=== PATIENT | female | born 1940 | race Caucasian/White ===

== ENCOUNTER → 2018-04-20 13:12 | Outpatient (CLI) | payer OTHER, SELFPAY | PROVIDERS: PCP Physician Assistant; Visit Provider Physician Assistant | DX: E11.9 Type 2 diabetes mellitus without complications (principal); Z78.0 Asymptomatic menopausal state | CPT/HCPCS: 77080 ==

== ENCOUNTER 2020-05-25 18:43 | Emergency (ER) | payer OTHER, SELFPAY ==
[2020-05-25 18:57] VITALS: BP 129/84; PULSE 88; RESP 20; TEMP 36.8; O2SAT 95; BMI 32.3
--- NOTE | 2020-05-25 19:05 | ED.EPISTAXIS ---
HPI - Epistaxis General Chief complaint: Nasal Problem Stated complaint: bloody nose Time Seen by Provider: 05/25/20 19:05 Source: patient Mode of arrival: Ambulatory Limitations: no limitations History of Present Illness HPI Narrative: 79-year-old woman with a history of diabetes, hypertension, hyperlipidemia on aspirin as her only anticoagulant presents with 3 episodes of epistaxis today. She describes no inciting events. The 1st episode happened is she was stepping out of the shower and lasted for approximately 30 minutes the next episode was a number of hours later while she was driving in the car, again lasted approximately 30 minute. The most recent episode started at 6:00 p.m. and lasted over an hour finally resolved in the emergency room with a nasal clamp placed.. Blood pressure has been well controlled, she has not noticed any nasal trauma nasal discharge or allergy issues. She is not complaining of nausea or vomiting. She is having no palpitations or chest pain. She has not had a history of recurrent epistaxis. Related Data Allergies Allergy/AdvReac Type Severity Reaction Status Date / Time latex [LATEX] Allergy Intermediate rash Verified 05/25/20 18:57 aspirin Allergy Verified 05/25/20 18:57 Review of Systems Review of Systems Narrative: Remainder of review of systems including constitutional, ENT, cardiovascular, respiratory, GI, , musculoskeletal, skin, neurologic and psychiatric systems reviewed and are unremarkable except as noted in HPI. Patient History Medical History Diabetes (Acute) Hyperlipidemia (Acute) Hypertension (Acute) Social History Smoking Status: Unknown if ever smoked Smoking Status: Unknown if ever smoked alcohol intake frequency: holidays/special occasions only Substance Use Type: does not use Exam Narrative Exam Narrative: General: Healthy appearing, in no acute distress. Able to give a complete and coherent history. Well-nourished well-developed HEENT: Moist mucous membranes, normal sclera with reactive pupils, Nose: Nasal clamp is removed. Gentle examination of nasal cavity bilaterally reveals no clots and no point area of bleeding. Neck: No JVD, supple Respiratory: Lungs are clear to auscultation, no wheezing no rales no rhonchi. Full and symmetrical air movement Cardiac: Regular rate and rhythm no murmurs no bruits Abdomen: Soft nontender good bowel tones, no flank pain Skin: Warm and dry, no rashes Neurologic: Grossly neurologically intact with no obvious asymmetries or abnormalities Extremities: No trauma, well perfused Psych: Cooperative, appropriate insight and affect Initial Vital Signs Initial Vital Signs: Vital Signs Temperature 98.2 F 05/25/20 18:57 Pulse Rate 88 05/25/20 18:57 Respiratory Rate 20 05/25/20 18:57 Blood Pressure 129/84 05/25/20 18:57 Pulse Oximetry 95 05/25/20 18:57 Course Orders Ordered: Discontinued Medications Oxymetazoline HCl (Nasal Decongestant) 2 sprays NASAL NOW ONE Stop: 05/25/20 19:17 Last Admin: 05/25/20 19:23 Dose: 2 sprays Documented by: LONI Vital Signs Vital signs: Vital Signs - 8 hr 05/25/20 18:57 Temperature 98.2 F Pulse Rate 88 Respiratory Rate 20 Blood Pressure 129/84 Pulse Oximetry 95 [facility] - Epistaxis Medical Records Attestation: I reviewed the patient's medical records. [facility] Narrative Medical decision making narrative: Three episodes of epistaxis today with normal blood pressures and no evidence of trauma, infection or other reasons to explain the epistaxis. This is not a common finding for Brisa. Bleeding stopped spontaneously. His state. After using 2 sprays of Afrin. I do not see any obvious source of bleeding that could be cauterized or needs to be packed. Reassurance is given. Encouraged her to follow-up with ENT should she have continued small episodes of epistaxis. At this point I do not see any other signs of bleeding to suggest a significant bleeding dyscrasia, no elevated blood pressure and no other significant pathology is appreciated. She is safe for home discharge Discharge Plan Departure Patient Disposition: Home Clinical Impression: Epistaxis Instructions: DI for Nosebleed Activity Restrictions/Additional Instructions: Thank you for coming in today You nose bleed stopped with pressure here in the emergency department. We did use some Afrin to try to constrict the blood vessels in your nose to prevent it from restarting. In looking up ear nose I do not see any obvious bleeding sites or blood clots at this time. I think that it is safe for you to go home. If you have a recurrent nose bleed, please use 2 sprays of Afrin and a nose clamp. If the blood is running down the back of your throat or does not stop within 20-30 minutes please feel free to return to the emergency department and will talk about using some nasal packing to help stop the bleeding. If you continue to have small nose bleeds I would encourage you to set up an appointment with Dr. Manuel Tse, our ear nose and throat physician, to have him take a with nose and see if there is any areas that might benefit being cauterized. I wish you the best Referrals: Manuel Tse MD [Physician] - Keiry Spicer PA-C [Primary Care Provider] -
[2020-05-25] MEDS: OXYMETAZOLINE NASAL SPRAY 15 ML 2 SPRAYS NASAL (19:23)
--- NOTE | 2020-05-25 19:55 | PC.NURSE ---
Patient ambulated without bleeding from nose.
[2020-05-25 20:43] VITALS: BP 142/65; PULSE 92; O2SAT 97
== END 2020-05-25 20:44 | disposition home or self-care (01) ==
PROVIDERS: Emergency Provider Emergency Medicine; PCP Physician Assistant
DX: R04.0 Epistaxis (principal); E11.9 Type 2 diabetes mellitus without complications; I10 Essential (primary) hypertension; E78.5 Hyperlipidemia, unspecified; Z79.82 Long term (current) use of aspirin
CPT/HCPCS: 99282; A9270

== ENCOUNTER 2022-12-20 14:33 | Inpatient (IN) | payer MEDICARE, SELFPAY ==
[2022-12-20] VITALS (23 sets, daily range): BP systolic 180–217; BP diastolic 69–90; PULSE 58–69; RESP 18–27; TEMP 36.6–37.6; O2SAT 94–98; BMI 32.3
--- NOTE | 2022-12-20 14:53 | DI.CT.S_ITS ---
PROCEDURE: CT HEAD/BRAIN WO CON INDICATIONS: facial droop, left arm weakness TECHNIQUE: Noncontrast 4.5 mm thick angled axial sections acquired from the foramen magnum to the vertex, with coronal and sagittal reformats. For radiation dose reduction, the following was used: automated exposure control, adjustment of mA and/or kV according to patient size. COMPARISON: [facility], CT, CT ANGIO HEAD AND NECK, 12/20/2022, 15:02. FINDINGS: Image quality: Excellent. CSF spaces: Basal cisterns are patent. No extra-axial fluid collections. The ventricles are symmetric in size and shape. Brain: No intracranial bleeds or masses. There is cerebral volume loss for age, with resultant ventricular and sulcal prominence. There are periventricular and deep white matter chronic small vessel ischemic changes. There is intracranial internal carotid artery atherosclerosis. In this patient with a history of facial droop, scrutiny is given to the courses of the facial nerves, including within the parotid glands. No masses are seen within these regions. Skull and face: Calvarium and visualized facial bones appear intact, without suspicious lesions. Sinuses: Visualized sinuses and mastoids are clear. IMPRESSION: No acute intracranial hemorrhage is seen. No acute intracranial process is seen. No imaging explanation is found for this patient's presenting symptoms. If there is strong clinical suspicion for an acute stroke, please consider a brain MRI for further evaluation, as it is more sensitive (assuming that there is no contraindication to MRI). Dictated by: Daniel Griffiths M.D. on 12/20/2022 at 14:48 Approved by: Daniel Griffiths M.D. on 12/20/2022 at 14:50
--- NOTE | 2022-12-20 14:53 | DI.CT.S_ITS ---
PROCEDURE: CT ANGIO HEAD AND NECK INDICATIONS: facial droop left arm weakness TECHNIQUE: Noncontrast images were performed earlier in the day and not repeated. After the administration of intravenous contrast, 1 mm thick sections acquired from the aortic arch through the [place]. Post-contrast 4.5 mm thick sections then re-acquired from the foramen magnum to the vertex. 3-dimensional [id number] (MIP) and/or volume rendering reformats were acquired of the central intracranial vasculature and neck separately. For radiation dose reduction, the following was used: automated exposure control, adjustment of mA and/or kV according to patient size. COMPARISON: [facility], CT, CT HEAD/BRAIN WO CON, 12/20/2022, 15:02. FINDINGS: Image quality: Excellent. BRAIN: CSF spaces: Ventricles are normal in size and shape. Basal cisterns are patent. No extra-axial fluid collections. Brain: No midline shift. No intracranial bleeds or masses. López-white matter interface appears intact. Skull and face: Calvarium and facial bones appear intact, without suspicious lesions. Orbits appear normal. Sinuses: Sinuses and mastoids are clear. HEAD CT ANGIOGRAPHY: Anterior circulation: Intracranial internal carotid arteries are normal in size and flow. The flow within the paired anterior cerebral arteries is normal and symmetric. The flow within the middle cerebral arteries is normal and symmetric. The anterior communicating artery is seen. No aneurysms are seen. Posterior circulation: Visualized portions of the vertebral arteries demonstrate normal caliber, and join to form a normal appearing basilar artery. There is a prominent left posterior communicating artery seen, with an accompanying diminutive left P1 segment. This is attributed to a type origin of the right posterior cerebral artery, which is considered to be a normal developmental variant of typically no clinical consequence. The flow within the posterior cerebral arteries is normal and symmetric. No aneurysms are seen. NECK CT ANGIOGRAPHY: Carotid system: The great vessels demonstrate a conventional anatomy as they arise from the aortic arch. The origins of the common carotid arteries appear patent. The common carotid arteries demonstrate normal caliber and courses. The bifurcation regions are both widely patent. The internal carotid arteries demonstrate normal calibers. Moderate tortuosity can be seen involving the extracranial internal carotid arteries. Posterior circulation: The origins of the vertebral arteries both appear widely patent. The more superior extracranial portions of both vertebral arteries also demonstrate normal courses and calibers. They join to form a normal appearing basilar artery. Soft tissues: Visualized neck soft tissues demonstrate no suspicious abnormalities. The thyroid is prominent, particularly on the left side. There are borderline prominent seen within the mediastinum. Bones: No suspicious bony lesions. Visualized cervical spine appears normally aligned. Cervical spine degenerative changes are seen, with moderate lower cervical spine degenerative change IMPRESSION: No imaging explanation is found for this patient's presenting symptoms. Within the arteries of the neck, no hemodynamically significant stenosis can be seen. Prominent thyroid, particularly on the left. - When clinically appropriate, a follow-up thyroid ultrasound could be considered for further evaluation. Borderline prominent lymph nodes can be seen within the mediastinum. - If there is strong clinical concern for malignancy, please consider a dedicated follow-up chest CT for further evaluation. Additional findings: type origin of the left posterior cerebral artery Moderate lower cervical spine degenerative change Tortuosity of the distal extracranial internal carotid arteries Any quantitative measurements of stenosis were performed using NASCET criteria. Dictated by: Daniel Griffiths M.D. on 12/20/2022 at 14:50 Approved by: Daniel Griffiths M.D. on 12/20/2022 at 14:53
--- NOTE | 2022-12-20 14:54 | ED_ITS ---
HPI - Neuro Symptoms/Deficit General Chief Complaint: Weakness Stated Complaint: lt hand numb, lt arm heaviness Time Seen by Provider: 12/20/22 14:53 Source: patient Mode of arrival: Ambulatory Limitations: no limitations History of Present Illness HPI Narrative: This is an 82-year-old female with history of diabetes, hypertension, dyslipidemia, macular degeneration on 81 mg aspirin daily with complaint of left upper extremity weakness. Patient states she woke up with symptoms this morning. She does not recall having any issues yesterday. She states she was having difficulty picking up objects and she is noticed a left arm seems numb and weak compared to the right. Patient states she has not had any headaches, she had some episodes of colored flashes earlier today that were brief but resolved. She has history of macular degeneration but no other acute vision changes recently. She denies chest pain or shortness of breath, no nausea or vomiting. She does not appreciate any numbness, tingling weakness of her legs, right upper extremity or face. She denies any dizziness or feeling off balance. She states she is been ambulating without issue. 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 No known prior strokes. Patient states she forgot her morning medications today she thought she had put them in her left pocket but now she can not find them and she thinks she may have dropped secondary to the weakness in her arm or did not realize she had put them in her pocket. She is had C-sections x3, denies other surgeries. No tobacco, alcohol or illicit. Family at bedside has photos of the patient for October and facial droop is present in those photos as well. Her primary care is Radha Golden, she follows with Dr. Mauricio for Ophthalmology gets shots in her eyes every 5 weeks for her macular degeneration. She denies drug allergies but has reported allergy to aspirin, clarified with patient. She states she can take aspirin without issue. On Anticoagulants: No Related Data Previous Rx's Medication Instructions Recorded aluminum-mag hydroxide-simethicone 30 ml PO Q6HR PRN Dyspepsia #500 mL 12/22/22 200 mg-200 mg-20 mg/5 mL oral susp (Mag-Al Plus) aspirin 81 mg capsule 81 mg PO DAILY #30 caps 12/22/22 atorvastatin 20 mg tablet 80 mg PO BEDTIME #120 tabs 12/22/22 clopidogrel 75 mg tablet 75 mg PO DAILY #20 tabs 12/22/22 hydralazine 25 mg tablet 25 mg PO ACHS #120 tabs 12/22/22 insulin glargine 100 unit/mL (3 20 unit (0.2 mL) SUBCUT BEDTIME 12/22/22 mL) subcutaneous pen (Lantus #15 mL Solostar U-100 Insulin) lisinopril 20 mg tablet 20 mg PO DAILY #30 tabs 12/22/22 metoprolol succinate 25 mg 25 mg PO BID #60 tabs 12/22/22 tablet,extended release 24 hr sennosides 8.6 mg tablet (senna) 17.2 mg PO BEDTIME #30 tabs 12/22/22 Allergies Allergy/AdvReac Type Severity Reaction Status Date / Time latex [LATEX] Allergy Intermediate rash Verified 12/20/22 14:50 Review of Systems Review of Systems ROS Unobtainable: All systems reviewed & are unremarkable except as noted in HPI and below Hematologic/Lymphatic On Anticoagulants: No Patient History Medical History Diabetes History of Zaman's palsy Hyperlipidemia Hypertension Macular degeneration Surgical History History of Social History household members: spouse and family Smoking Status: Unknown if ever smoked alcohol intake: never Smoking Status: Unknown if ever smoked alcohol intake frequency: holidays/special occasions only Substance Use Type: does not use Exam Narrative Exam Narrative: GEN: well nourished, well appearing female, alert and oriented x 3, patient appears to be in mild distress. HEENT: Atraumatic, pupils are equal round reactive to light, extraocular movements are intact, nares are clear, TMs are clear with no fluid, there is no conjunctival pallor. Throat is clear without any exudates, erythema, tonsillar enlargement or uvular deviation, left lower facial droop. Daughter has photos from October which show same facial droop. HEART: Regular rate and rhythm without murmur, clicks, rubs. pulses are equal in upper and lower extremities LUNGS:Lungs clear to auscultation, no wheezes, rales, crackles, chest moves symmetrically ABD:bowel sounds normal, soft, non-tender, no guarding, rebound, rigidity, no masses noted, no hepatosplenomegaly MSCL: Non-tender, no muscle atrophy, muscles strength 5/5 upper and lower extremities, full range of motion. NEURO:CN 2-12 intact, sensation normal, finger nose finger test normal with right upper extremity, patient has some difficulty with the left, heel sandhu test normal bilateral. Initial Vital Signs Initial Vital Signs: Vital Signs Temperature 99.6 F 12/20/22 14:36 Pulse Rate 68 12/20/22 14:36 Respiratory Rate 20 12/20/22 14:36 Blood Pressure 190/84 H 12/20/22 14:36 Pulse Oximetry 97 12/20/22 14:36 Oxygen Delivery Method Room Air 12/20/22 14:36 Scores NIH Stroke Scale Level of Conciousness: Alert, keenly responsive Ask month/age: Answers both questions correctly. Open/close eyes, close hand: Performs both tasks correctly Best gaze horizontal: Normal Visual moreira: No visual loss Facial palsy: Partial paralysis, total or near total paralysis of lower face Left arm drift: No drift for full 10 sec Right arm drift: No drift for full 10 sec Left leg drift: No drift for full 5 sec Right leg drift: No drift for full 5 sec Limb ataxia: Present in one limb Sensory on face/arms/legs: Mild to moderate sensory loss, can tell touch Best language: No aphasia, normal Dysarthria: Normal Extinction or inattention: No abnormality Total NIH Stroke scale score: 4 Course Orders Ordered: Discontinued Medications Acetaminophen (Acetaminophen 325 Mg Tablet) 650 mg PO Q6HR PRN PRN Reason: Fever Al Hydrox/Mg Hydrox/Simethicone (Mag Hydrox/Alum/Simeth 30 Ml Udc) 30 ml PO Q6HR PRN PRN Reason: Dyspepsia Aspirin (Aspirin 81 Mg Chew Tab) 324 mg PO NOW ONE Stop: 12/20/22 16:03 Last Admin: 12/20/22 16:22 Dose: 324 mg Documented By: RB Aspirin (Aspirin Ec 325 Mg Tablet) 325 mg PO DAILY [facility] Last Admin: 12/22/22 08:17 Dose: 325 mg Documented By: Admin: 12/21/22 08:15 Dose: 325 mg Documented By: EM Atorvastatin Calcium (Atorvastatin 20 Mg Tablet) 20 mg PO BEDTIME [facility] Last Admin: 12/21/22 21:54 Dose: 20 mg Documented By: Admin: 12/20/22 21:15 Dose: 20 mg Documented By: CS Atorvastatin Calcium (Atorvastatin 20 Mg Tablet) 80 mg PO BEDTIME [facility] Calcium Carbonate (Calcium Carbonate 500 Mg Tab) 1,000 mg PO Q4HR PRN PRN Reason: Dyspepsia Clopidogrel Bisulfate (Clopidogrel 75 Mg Tablet) 75 mg PO DAILY [facility] Last Admin: 12/22/22 08:18 Dose: 75 mg Documented By: Admin: 12/21/22 08:15 Dose: 75 mg Documented By: EM Dextrose (Dextrose 50 % In Water 25 Gm/50 Ml Syringe) 25 gm IV PRN PRN PRN Reason: Hypoglycemia Enoxaparin Sodium (Enoxaparin 40 Mg/0.4 Ml Syringe) 40 mg SUBCUT DAILY [facility] Last Admin: 12/22/22 08:19 Dose: 40 mg Documented By: Admin: 12/21/22 08:15 Dose: 40 mg Documented By: EM Furosemide (Furosemide 40 Mg/4 Ml Vial) 20 mg IV NOW ONE Stop: 12/21/22 15:28 Last Admin: 12/21/22 15:41 Dose: 20 mg Documented By: MM Furosemide (Furosemide 20 Mg Tablet) 20 mg PO DAILY [facility] Last Admin: 12/22/22 08:17 Dose: 20 mg Documented By: MM Hydralazine HCl (Hydralazine 25 Mg Tablet) 25 mg PO NOW ONE Stop: 12/21/22 09:15 Last Admin: 12/21/22 09:23 Dose: 25 mg Documented By: VIKKI Hydralazine HCl (Hydralazine 25 Mg Tablet) 25 mg PO BIDWM [facility] Hydralazine HCl (Hydralazine 20 Mg/Ml Vial) 10 mg IV NOW ONE Stop: 12/21/22 15:25 Last Admin: 12/21/22 15:41 Dose: 10 mg Documented By: MM Hydralazine HCl (Hydralazine 25 Mg Tablet) 25 mg PO ACHS [facility] Last Admin: 12/22/22 12:04 Dose: 25 mg Documented By: Admin: 12/22/22 08:18 Dose: 25 mg Documented By: Admin: 12/21/22 21:54 Dose: 25 mg Documented By: Admin: 12/21/22 17:23 Dose: 25 mg Documented By: VIKKI Hydrochlorothiazide (Hydrochlorothiazide 25 Mg Tablet) 12.5 mg PO DAILY [facility] Last Admin: 12/22/22 08:17 Dose: 12.5 mg Documented By: Admin: 12/21/22 08:15 Dose: 12.5 mg Documented By: EM Sodium Chloride (Normal Saline 0.9%) 1,000 mls @ 150 mls/hr IV CONT [facility] Last Admin: 12/20/22 18:32 Dose: 150 mls/hr Documented By: Infusion: 12/20/22 18:32 Dose: 150 mls/hr Documented By: Admin: 12/20/22 15:28 Dose: 150 mls/hr Documented By: RB Sodium Chloride (Normal Saline 0.9%) 1,000 mls @ 80 mls/hr IV CONT [facility] Last Infusion: 12/21/22 09:41 Dose: 80 mls/hr Documented By: Admin: 12/20/22 21:16 Dose: 80 mls/hr Documented By: JASBIR Insulin Glargine (Insulin Glargine 100 Unit/Ml 3ml Pen) 20 unit SUBCUT BEDTIME [facility] Last Admin: 12/21/22 21:53 Dose: 20 unit Documented By: JASBIR Co-signed By: VAMSI Admin: 12/20/22 21:28 Dose: 20 unit Documented By: JASBIR Co-signed By: Insulin Human Lispro (Insulin Lispro 100 Unit/Ml 3ml Vial) 0 unit SUBCUT ACHS [facility]; Protocol Last Admin: 12/22/22 12:05 Dose: 2 unit Documented By: VIKKI Co-signed By: EVA Admin: 12/22/22 08:17 Dose: 1 unit Documented By: VIKKI Co-signed By: EVA Admin: 12/21/22 21:52 Dose: 2 unit Documented By: JASBIR Co-signed By: VAMSI Admin: 12/21/22 17:22 Dose: 2 unit Documented By: VIKKI Co-signed By: CELIA Admin: 12/21/22 12:17 Dose: 2 unit Documented By: VIKKI Co-signed By: CELIA Admin: 12/21/22 07:52 Dose: Not Given Documented By: Admin: 12/20/22 22:15 Dose: Not Given Documented By: CS Labetalol HCl (Labetalol 20 Mg/4 Ml Syringe) 5 mg IV NOW ONE; Protocol Stop: 12/20/22 15:39 Last Admin: 12/20/22 15:43 Dose: 5 mg Documented By: RB Labetalol HCl (Labetalol 20 Mg/4 Ml Syringe) 5 mg IV Q4HR PRN PRN Reason: Blood Pressure - High Last Admin: 12/21/22 14:06 Dose: 5 mg Documented By: MM Lisinopril (Lisinopril 20 Mg Tablet) 20 mg PO NOW ONE Stop: 12/20/22 20:31 Last Admin: 12/20/22 21:15 Dose: 20 mg Documented By: CS Lisinopril (Lisinopril 20 Mg Tablet) 20 mg PO DAILY [facility] Last Admin: 12/22/22 08:18 Dose: 20 mg Documented By: Admin: 12/21/22 08:15 Dose: 20 mg Documented By: EM Lorazepam (Lorazepam 2 Mg/Ml Inj) 0.5 mg IV Q2HR PRN PRN Reason: Anxiety Magnesium Chloride (Magnesium Chloride 64 Mg Tablet) 128 mg PO NOW ONE Stop: 12/21/22 08:50 Last Admin: 12/21/22 09:20 Dose: 128 mg Documented By: MM Metoprolol Succinate (Metoprolol Er 25 Mg Tablet) 25 mg PO BID [facility] Last Admin: 12/22/22 08:18 Dose: 25 mg Documented By: Admin: 12/21/22 21:53 Dose: 25 mg Documented By: CS Metoprolol Tartrate (Metoprolol Tartrate 5 Mg/5 Ml Inj) 5 mg IV NOW ONE Stop: 12/21/22 18:39 Last Admin: 12/21/22 19:58 Dose: 5 mg Documented By: CS Naloxone HCl (Naloxone 0.4 Mg/Ml Vial) 0.2 mg IV Q2MIN PRN PRN Reason: Opiate Reversal Ondansetron HCl (Ondansetron 4 Mg Odt) 4 mg PO Q8HR PRN PRN Reason: Nausea And Vomiting Potassium Chloride (Potassium Chloride 20 Meq Tab) 40 meq PO Q6H [facility] Stop: 12/21/22 15:01 Last Admin: 12/21/22 14:06 Dose: 40 meq Documented By: Admin: 12/21/22 09:20 Dose: 40 meq Documented By: MM Sennosides (Sennosides 8.6 Mg Tablet) 17.2 mg PO BEDTIME [facility] Last Admin: 12/21/22 21:54 Dose: 17.2 mg Documented By: Admin: 12/20/22 21:17 Dose: Not Given Documented By: CS Vital Signs Vital signs: Vital Signs - 8 hr 12/20/22 14:36 12/20/22 15:07 12/20/22 15:14 Temperature 99.6 F Pulse Rate 68 67 65 Respiratory Rate 20 24 Blood Pressure 190/84 H Pulse Oximetry 97 97 97 Oxygen Delivery Method Room Air 12/20/22 15:14 12/20/22 15:15 12/20/22 15:15 Temperature Pulse Rate 66 Respiratory Rate 25 H Blood Pressure 198/79 H 184/77 H Pulse Oximetry 98 Oxygen Delivery Method 12/20/22 15:21 12/20/22 15:21 12/20/22 15:25 Temperature Pulse Rate 66 Respiratory Rate 22 Blood Pressure 217/86 H 191/83 H Pulse Oximetry 98 Oxygen Delivery Method 12/20/22 15:25 12/20/22 15:30 12/20/22 15:30 Temperature Pulse Rate 66 69 Respiratory Rate Blood Pressure 196/86 H Pulse Oximetry 98 96 Oxygen Delivery Method 12/20/22 15:43 12/20/22 15:34 12/20/22 15:34 Temperature Pulse Rate 66 67 Respiratory Rate Blood Pressure 186/69 H 206/78 H Pulse Oximetry 96 Oxygen Delivery Method 12/20/22 15:36 12/20/22 15:36 12/20/22 15:40 Temperature Pulse Rate 67 67 Respiratory Rate 24 Blood Pressure 200/90 H Pulse Oximetry 96 95 Oxygen Delivery Method 12/20/22 15:40 12/20/22 15:45 12/20/22 15:45 Temperature Pulse Rate 66 Respiratory Rate 27 H Blood Pressure 186/69 H 183/81 H Pulse Oximetry 96 Oxygen Delivery Method MDM - Neuro Symptoms/Deficit Lab Data 12/21/22 06:15 12/22/22 06:05 Labs: Lab Results 12/20/22 12/20/22 12/20/22 Range/Units 14:55 14:55 14:55 WBC 8.2 (4.5-11.0) X10^3/uL RBC 4.40 (4.0-5.2) X10^6/uL Hgb 11.9 L (12.0-16.0) g/dL Hct 34.8 L (36-46) % MCV 79.2 L (80-100) fL MCH 27.0 (26-34) PG MCHC 34.0 (30-36) % RDW 14.1 (11.6-14.8) % Plt Count 134 L (150-400) X10^3/uL Neut % (Auto) 71.5 (50-75) % Lymph % (Auto) 19.6 L (25-40) % Dixon % (Auto) 6.3 (3-14) % Eos % (Auto) 1.8 L (2-4) % Baso % (Auto) 0.8 (0-2) % Neut # (Auto) 5800 (0585-3936) /uL Lymph # (Auto) 1600 (4481-1545) /uL Dixon # (Auto) 500 (0-900) /uL Eos # (Auto) 100 (0-450) /uL Baso # (Auto) 100 (0-100) /uL PT 11.9 (10.1-12.7) SECONDS INR 1.0 (0.9-1.3) APTT 26 (26-36) SECONDS Sodium 136 L (137-145) mmol/L Potassium 3.6 (3.4-5.1) mmol/L Chloride 101 (98-107) mmol/L Carbon Dioxide 27 (22-32) mmol/L BUN 13 (7-17) mg/dL Creatinine 0.64 (0.52-1.04) mg/dL Estimated GFR > 60 (>60) mL/min BUN/Creatinine Ratio 20.3 (6-22) Glucose 308 H (80-110) mg/dL Hemoglobin A1c Hgb A1c (Ref Lab) (4.8-5.6) % Calcium 9.1 (8.4-10.2) mg/dL Magnesium (1.6-2.3) mg/dL Total Bilirubin 0.5 (0.2-1.3) mg/dL AST 20 (14-36) IU/L ALT 14 (<35) IU/L Alkaline Phosphatase 127 H (38-126) U/L Total Creatine Kinase 20 L (30-135) U/L CK-MB (CK-2) TNP CK-MB (CK-2) Rel Index TNP Troponin I < 0.012 (0.01-0.034) ng/mL NT-Pro-B Natriuret Pep (<450) pg/mL Total Protein 6.9 (6.3-8.2) g/dL Albumin 3.8 (3.5-5.0) g/dL Globulin 3.1 (1.7-4.1) g/dL Albumin/Globulin Ratio 1.2 (1.0-2.8) TSH (0.47-4.68) uIU/mL Free T4 (0.78-2.19) ng/dL Ethyl Alcohol < 10 ( - 10) mg/dL SARS-CoV-2 (PCR) (Negative) 12/20/22 12/20/22 12/20/22 Range/Units 14:55 14:55 14:55 WBC (4.5-11.0) X10^3/uL RBC (4.0-5.2) X10^6/uL Hgb (12.0-16.0) g/dL Hct (36-46) % MCV (80-100) fL MCH (26-34) PG MCHC (30-36) % RDW (11.6-14.8) % Plt Count (150-400) X10^3/uL Neut % (Auto) (50-75) % Lymph % (Auto) (25-40) % Dixon % (Auto) (3-14) % Eos % (Auto) (2-4) % Baso % (Auto) (0-2) % Neut # (Auto) (8113-4883) /uL Lymph # (Auto) (1609-9396) /uL Dixon # (Auto) (0-900) /uL Eos # (Auto) (0-450) /uL Baso # (Auto) (0-100) /uL PT (10.1-12.7) SECONDS INR (0.9-1.3) APTT (26-36) SECONDS Sodium (137-145) mmol/L Potassium (3.4-5.1) mmol/L Chloride (98-107) mmol/L Carbon Dioxide (22-32) mmol/L BUN (7-17) mg/dL Creatinine (0.52-1.04) mg/dL Estimated GFR (>60) mL/min BUN/Creatinine Ratio (6-22) Glucose (80-110) mg/dL Hemoglobin A1c Cancelled Hgb A1c (Ref Lab) (4.8-5.6) % Calcium (8.4-10.2) mg/dL Magnesium 1.6 (1.6-2.3) mg/dL Total Bilirubin (0.2-1.3) mg/dL AST (14-36) IU/L ALT (<35) IU/L Alkaline Phosphatase (38-126) U/L Total Creatine Kinase (30-135) U/L CK-MB (CK-2) CK-MB (CK-2) Rel Index Troponin I (0.01-0.034) ng/mL NT-Pro-B Natriuret Pep (<450) pg/mL Total Protein (6.3-8.2) g/dL Albumin (3.5-5.0) g/dL Globulin (1.7-4.1) g/dL Albumin/Globulin Ratio (1.0-2.8) TSH 1.08 (0.47-4.68) uIU/mL Free T4 (0.78-2.19) ng/dL Ethyl Alcohol ( - 10) mg/dL SARS-CoV-2 (PCR) (Negative) 12/20/22 12/20/22 12/20/22 Range/Units 14:55 14:55 14:55 WBC (4.5-11.0) X10^3/uL RBC (4.0-5.2) X10^6/uL Hgb (12.0-16.0) g/dL Hct (36-46) % MCV (80-100) fL MCH (26-34) PG MCHC (30-36) % RDW (11.6-14.8) % Plt Count (150-400) X10^3/uL Neut % (Auto) (50-75) % Lymph % (Auto) (25-40) % Dixon % (Auto) (3-14) % Eos % (Auto) (2-4) % Baso % (Auto) (0-2) % Neut # (Auto) (9220-7720) /uL Lymph # (Auto) (4925-9331) /uL Dixon # (Auto) (0-900) /uL Eos # (Auto) (0-450) /uL Baso # (Auto) (0-100) /uL PT (10.1-12.7) SECONDS INR (0.9-1.3) APTT (26-36) SECONDS Sodium (137-145) mmol/L Potassium (3.4-5.1) mmol/L Chloride (98-107) mmol/L Carbon Dioxide (22-32) mmol/L BUN (7-17) mg/dL Creatinine (0.52-1.04) mg/dL Estimated GFR (>60) mL/min BUN/Creatinine Ratio (6-22) Glucose (80-110) mg/dL Hemoglobin A1c Hgb A1c (Ref Lab) 7.8 H (4.8-5.6) % Calcium (8.4-10.2) mg/dL Magnesium (1.6-2.3) mg/dL Total Bilirubin (0.2-1.3) mg/dL AST (14-36) IU/L ALT (<35) IU/L Alkaline Phosphatase (38-126) U/L Total Creatine Kinase (30-135) U/L CK-MB (CK-2) CK-MB (CK-2) Rel Index Troponin I (0.01-0.034) ng/mL NT-Pro-B Natriuret Pep 225 (<450) pg/mL Total Protein (6.3-8.2) g/dL Albumin (3.5-5.0) g/dL Globulin (1.7-4.1) g/dL Albumin/Globulin Ratio (1.0-2.8) TSH (0.47-4.68) uIU/mL Free T4 1.53 (0.78-2.19) ng/dL Ethyl Alcohol ( - 10) mg/dL SARS-CoV-2 (PCR) (Negative) 12/20/22 Range/Units 15:12 WBC (4.5-11.0) X10^3/uL RBC (4.0-5.2) X10^6/uL Hgb (12.0-16.0) g/dL Hct (36-46) % MCV (80-100) fL MCH (26-34) PG MCHC (30-36) % RDW (11.6-14.8) % Plt Count (150-400) X10^3/uL Neut % (Auto) (50-75) % Lymph % (Auto) (25-40) % Dixon % (Auto) (3-14) % Eos % (Auto) (2-4) % Baso % (Auto) (0-2) % Neut # (Auto) (2231-6161) /uL Lymph # (Auto) (5351-8015) /uL Dixon # (Auto) (0-900) /uL Eos # (Auto) (0-450) /uL Baso # (Auto) (0-100) /uL PT (10.1-12.7) SECONDS INR (0.9-1.3) APTT (26-36) SECONDS Sodium (137-145) mmol/L Potassium (3.4-5.1) mmol/L Chloride (98-107) mmol/L Carbon Dioxide (22-32) mmol/L BUN (7-17) mg/dL Creatinine (0.52-1.04) mg/dL Estimated GFR (>60) mL/min BUN/Creatinine Ratio (6-22) Glucose (80-110) mg/dL Hemoglobin A1c Hgb A1c (Ref Lab) (4.8-5.6) % Calcium (8.4-10.2) mg/dL Magnesium (1.6-2.3) mg/dL Total Bilirubin (0.2-1.3) mg/dL AST (14-36) IU/L ALT (<35) IU/L Alkaline Phosphatase (38-126) U/L Total Creatine Kinase (30-135) U/L CK-MB (CK-2) CK-MB (CK-2) Rel Index Troponin I (0.01-0.034) ng/mL NT-Pro-B Natriuret Pep (<450) pg/mL Total Protein (6.3-8.2) g/dL Albumin (3.5-5.0) g/dL Globulin (1.7-4.1) g/dL Albumin/Globulin Ratio (1.0-2.8) TSH (0.47-4.68) uIU/mL Free T4 (0.78-2.19) ng/dL Ethyl Alcohol ( - 10) mg/dL SARS-CoV-2 (PCR) Negative (Negative) Point of Care Testing Glucose POC [address] scan - head: Radiologist's Impression: [address] [address] [address] Scan Report Signed Patient: Brisa Green MR#: [id number] : 1940 Acct:[id number] Age/Sex: 82 / F Date of Service: 12/20/22 Loc: ED Accession Number: [id number] ?? Procedure: CT head/brain wo con Ordering Provider: Lilia Romero D.O. PROCEDURE:? CT HEAD/BRAIN WO CON ? INDICATIONS:? facial droop, left arm weakness ? TECHNIQUE:? Noncontrast 4.5 mm thick angled axial sections acquired from the foramen magnum to the vertex, with coronal and sagittal reformats.? For radiation dose reduction, the following was used:? automated exposure control, adjustment of mA and/or kV according to patient size.? ? COMPARISON:? [facility], CT, CT ANGIO HEAD AND NECK, 12/20/2022, 15:02. ? FINDINGS:? Image quality:? Excellent.? ? CSF spaces:? Basal cisterns are patent.? No extra-axial fluid collections.? The ventricles are symmetric in size and shape.? ? Brain:? No intracranial bleeds or masses.? There is cerebral volume loss for age, with resultant ventricular and sulcal prominence.? There are periventricular and deep white matter chronic small vessel ischemic changes.? There is intracranial internal carotid artery atherosclerosis. ? In this patient with a history of facial droop, scrutiny is given to the courses of the facial nerves, including within the parotid glands.? No masses are seen within these regions.? ? Skull and face:? Calvarium and visualized facial bones appear intact, without suspicious lesions.? ? Sinuses:? Visualized sinuses and mastoids are clear.? ? IMPRESSION:? No acute intracranial hemorrhage is seen.? ? No acute intracranial process is seen.? ? No imaging explanation is found for this patient's presenting symptoms.? ? If there is strong clinical suspicion for an acute stroke, please consider a brain MRI for further evaluation, as it is more sensitive (assuming that there is no contraindication to MRI). ? ? Dictated by: Daniel Griffiths M.D. on 12/20/2022 at 14:48 ? ? Approved by: Daniel Griffiths M.D. on 12/20/2022 at 14:50?? CTA - brain/neck: Radiologist's Impression: [address] [address] [address] Scan Report Signed Patient: Brisa Green MR#: [id number] : 1940 Acct:[id number] Age/Sex: 82 / F Date of Service: 12/20/22 Loc: ED Accession Number: [id number] ?? Procedure: CT angio head and neck Ordering Provider: Lilia Romero D.O. PROCEDURE:? CT ANGIO HEAD AND NECK ? INDICATIONS:? facial droop left arm weakness ? TECHNIQUE:? Noncontrast images were performed earlier in the day and not repeated.? After the administration of intravenous contrast, 1 mm thick sections acquired from the aortic arch through the [place] of [place].? Post-contrast 4.5 mm thick sections then re- acquired from the foramen magnum to the vertex.? 3-dimensional grkqtyq-fweznvuge-ogkntnznnp (MIP) and/or volume rendering reformats were acquired of the central intracranial vasculature and neck separately. For radiation dose reduction, the following was used:? automated exposure control, adjustment of mA and/or kV according to patient size.? ? COMPARISON:? [facility], CT, CT HEAD/BRAIN WO CON, 12/20/2022, 15:02. ? FINDINGS:? Image quality:? Excellent.? ? BRAIN:? CSF spaces:? Ventricles are normal in size and shape.? Basal cisterns are patent.? No extra-axial fluid collections.? ? Brain:? No midline shift.? No intracranial bleeds or masses.? López-white matter interface appears intact.? ? Skull and face:? Calvarium and facial bones appear intact, without suspicious lesions.? Orbits appear normal.? ? Sinuses:? Sinuses and mastoids are clear.? ? HEAD CT ANGIOGRAPHY:? Anterior circulation:? Intracranial internal carotid arteries are normal in size and flow.? The flow within the paired anterior cerebral arteries is normal and symm etric.? The flow within the middle cerebral arteries is normal and symmetric.? The anterior communicating artery is seen.? No aneurysms are seen.? ? Posterior circulation:? Visualized portions of the vertebral arteries demonstrate normal caliber, and join to form a normal appearing basilar artery.? There is a prominent left posterior communicating artery seen, with an accompanying diminutive left P1 segment. This is attributed to a type origin of the right posterior cerebral artery, which is considered to be a normal developmental variant of typically no clinical consequence.? The flow within the posterior cerebral arteries is normal and symmetric.? No aneurysms are seen.? ? NECK CT ANGIOGRAPHY:? Carotid system:? The great vessels demonstrate a conventional anatomy as they arise from the aortic arch.? The origins of the common carotid arteries appear patent.? The common carotid arteries demonstrate normal caliber and courses.? The bifurcation regions are both widely patent.? The internal carotid arteries demonstrate normal calibers.? Moderate tortuosity can be seen involving the extracranial internal carotid arteries. ? Posterior circulation:? The origins of the vertebral arteries both appear widely patent.? The more superior extracranial portions of both vertebral arteries also demonstrate normal courses and calibers.? They join to form a normal appearing basilar artery.? ? Soft tissues:? Visualized neck soft tissues demonstrate no suspicious abnormalities.? The thyroid is prominent, particularly on the left side.? There are borderline prominent seen within the mediastinum. ? Bones:? No suspicious bony lesions.? Visualized cervical spine appears normally aligned.? Cervical spine degenerative changes are seen, with moderate lower cervical spine degenerative change ? ? IMPRESSION:? ? No imaging explanation is found for this patient's presenting symptoms.? ? Within the arteries of the neck, no hemodynamically significant stenosis can be seen. ? ? Prominent thyroid, particularly on the left.? - When clinically appropriate, a follow-up thyroid ultrasound could be considered for further evaluation. ? Borderline prominent lymph nodes can be seen within the mediastinum.? - If there is strong clinical concern for malignancy, please consider a dedicated follow-up chest CT for further evaluation. ? ? Additional findings:? type origin of the left posterior cerebral artery Moderate lower cervical spine degenerative change Tortuosity of the distal extracranial internal carotid arteries ? Any quantitative measurements of stenosis were performed using NASCET criteria.? ? ? Dictated by: Daniel Griffiths M.D. on 12/20/2022 at 14:50 ? ? Approved by: Daniel Griffiths M.D. on 12/20/2022 at 14:53?? ECG Data Attestation: I personally reviewed and interpreted this ECG as follows: Prior ECG tracings: not available for review Interpretation: Sinus rhythm with premature atrial complex, rate of 70, OH 206, QRS of 98 QTC of 486. No acute ST elevation or depression noted. MDM Narrative Medical decision making narrative: This is a 82-year-old female who presents with stroke-like symptoms. 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 Patient has new left-sided upper extremity weakness she states she woke up with symptoms she did not have any yesterday when she went to sleep. She noticed that she was having difficulty picking up objects she is had decreased sensation and while her symptoms have been improving she still has some persistent weakness in her left upper extremity. She did notice some flushed colored lights earlier today for a brief period of time which resolved. She is hypertensive here in the department, initial head CT and CT angio show shows no acute change. CT angio shows no you not dynamically significant stenosis there is a prominent thyroid, borderline prominent lymph nodes. Patient has a mild anemia 11.9 patient was 12.9 in 2017 and platelets are 134. Coags are negative, sodium is 136 otherwise normal electrolytes, renal function glucose is 308, LFTs show an alk-phos of 127 but normal bilirubin, AST ALT and a negative troponin. Patient's symptoms seem quite consistent with stroke, last known normal is far outside the window for tPA. Patient had aspirin 324 mg after initial head CT was negative for bleed. Patient was quite hypertensive even on recheck had 5 mg of labetalol IV which brought her down to 180s systolic. Discussed with hospitalist, Dr. Newman for admission who accepts for admission. Discussed all these findings with patient and family and that she does need to follow up regarding her thyroid and some bigger lymph nodes most likely as an outpatient. Stroke Core Measures Exclusion Criteria TPA in CVA: Symptom Onset >3 or 4.5 Hours (LKN was yesterday 12/19/22.) Critical Care Time Critical Care Time Critical Care Time: Yes Total Critical Care Time: 25 Attestation: The high probability of a clinically significant, sudden or life threatening deterioration of the [neuro] system(s) required my full and direct attention, intervention and personal management. The aggregate critical care time was [] minutes. This time is in addition to time spent performing reported procedures but includes the following: [x] Data Review and interpretation [x] Patient assessment and monitoring of vital signs [x] Documentation [x] Medication orders and management Discharge Plan Departure Patient Disposition: Admitted As Inpatient Clinical Impression: Acute CVA (cerebrovascular accident) Admit Date/Time: 12/20/22 16:03 Admit Provider: Evelyn Newman
[2022-12-20 15:05] LABS: Add Manual Diff / Slide Review NO; Basophils Absolute Auto 100 /uL (0-100); Basophils Percent Auto 0.8 % (0-2); Eosinophils Absolute Auto 100 /uL (0-450); Eosinophils Percent Auto 1.8 % (2-4); Hematocrit 34.8 % (36-46); Hemoglobin 11.9 g/dL (12.0-16.0); Lymphocytes Absolute Auto 1600 /uL (1100-4500); Lymphocytes Percent Auto 19.6 % (25-40); Mean Corpuscular Volume 79.2 fL (80-100); Monocytes Absolute Auto 500 /uL (0-900); Monocytes Percent Auto 6.3 % (3-14); Neutrophils Absolute Auto 5800 /uL (1500-7000); Neutrophils Percent Auto 71.5 % (50-75); Platelet Count 134 X10^3/uL (150-400); Red Cell Distribution Width 14.1 % (11.6-14.8); White Blood Cell Count 8.2 X10^3/uL (4.5-11.0)
[2022-12-20 15:10] LABS: Prothrombin Time 11.9 SECONDS (10.1-12.7)
[2022-12-20 15:13] LABS: PTT Partial Thromboplastin Tim 26 SECONDS (26-36)
[2022-12-20 15:16] LABS: Alanine Aminotransferase 14 IU/L (<35); Albumin 3.8 g/dL (3.5-5.0); Albumin Globulin Ratio 1.2 (1.0-2.8); Alkaline Phosphatase 127 U/L (38-126); Aspartate Aminotransferase 20 IU/L (14-36); BUN Creatinine Ratio 20.3 (6-22); Bilirubin Total 0.5 mg/dL (0.2-1.3); Blood Urea Nitrogen 13 mg/dL (7-17); Calcium 9.1 mg/dL (8.4-10.2); Carbon Dioxide 27 mmol/L (22-32); Chloride 101 mmol/L (98-107); Creatine Kinase 20 U/L (30-135); Estimated Glomerular Filt Rate > 60 mL/min (>60); Ethanol (ETOH) < 10 mg/dL; Globulin 3.1 g/dL (1.7-4.1); Glucose 308 mg/dL (80-110); HEMOLYSIS < 15 (0-50); Potassium 3.6 mmol/L (3.4-5.1); Sodium 136 mmol/L (137-145); Total Protein 6.9 g/dL (6.3-8.2)
[2022-12-20 15:27] LABS: Troponin I < 0.012 ng/mL (0.01-0.034)
[2022-12-20] MEDS: SODIUM CHLORIDE 0.9% 1,000 ML 150 ML IV ×2 (15:28→18:32)
[2022-12-20 15:32] LABS: COVID19 -Nasal RAPID Negative (Negative)
--- NOTE | 2022-12-20 15:36 | PC.NURSE ---
NIH performed. Patient has a slight right sided mouth droop. Patient has history of bells palsy on that side of patient mouth. Family has picture from patient previously and patient appears to have this droop at baseline.
[2022-12-20] MEDS: LABETALOL 20 MG/4 ML SYRINGE 5 MG IV (15:43)
[2022-12-20] MEDS: ASPIRIN 81 MG CHEW TAB 324 MG PO (16:22)
[2022-12-20 18:08] LABS: Appearance Urine UA CLEAR; Bilirubin Urine UA NEGATIVE (NEGATIVE); Color Urine UA YELLOW; Glucose Urine UA 3+ g/dL (Negative); Ketones Urine UA NEGATIVE (NEGATIVE); Leukocyte Esterase Urine UA TRACE (NEGATIVE); Nitrite Urine UA NEGATIVE (Negative); Occult Blood Urine UA NEGATIVE (Negative); Protein Urine UA NEGATIVE (Negative)
[2022-12-20 18:10] LABS: pH Urine UA 7.5 (4.5-8.0)
--- NOTE | 2022-12-20 18:10 | DI.ECHO.S_ITS ---
[facility] +---------+ : : [address] : : : : [id number] : : : : Phone: [phone]+ Echocardiogram Report + + :Name: MARKO FUNG Study Date: 12/21/2022 Height: 66 in : [id number] ReadingLocation: Weight: 200 lb: : Gender: Female BSA: 2.0 m2 : :: 1940 Age: 82 yrs : :Reason For Study: CVA : : Performed By: Nivia Blount : :Referring: UNSPECIFIED : + + Interpretation Summary The left ventricle is normal in size and wall thickness. Left ventricular systolic function appears normal without focal wall motion abnormalities. The ejection fraction is estimated to be 60-65%. The right ventricle is normal in size and function. The left atrium is mildly dilated. Right atrial size is normal. There is no significant valvular heart disease. The aortic root is normal size. No obvious source for CVA. Procedure: A two-dimensional transthoracic echocardiogram with color flow and Doppler was performed. The study quality was technically adequate. The study was done portably. There is no prior echocardiogram noted for this patient. The patient was in normal sinus rhythm during the exam. Left Ventricle: The left ventricle is normal in size and wall thickness. Left ventricular systolic function appears normal without focal wall motion abnormalities. The ejection fraction is estimated to be 60-65%. Diastolic function could not be accurately assessed due to contradictory data. Right Ventricle: The right ventricle is normal in size and function. Atria: The left atrium is mildly dilated. Right atrial size is normal. Lipomatous hypertrophy of the interatrial septum is noted. There is no Doppler evidence for an interatrial shunt. Mitral Valve: There is mild mitral annular calcification. There is no mitral regurgitation noted. Aortic Valve: The aortic valve is normal in structure and function. No aortic regurgitation is present. Tricuspid Valve: The tricuspid valve is normal in structure and function. No tricuspid regurgitation. Pulmonary artery pressures cannot be estimated because of the lack of a measurable TR jet velocity. Pulmonic Valve: The pulmonic valve is not well seen, but is grossly normal. There is a trace or physiologic amount of pulmonic regurgitation. There is no significant valvular heart disease. Great Vessels: The aortic root is normal size. The ascending aorta is normal in size. The aortic arch could not be visualized. The IVC is of normal diameter and collapses greater than 50% with a sniff. This suggests a low right atrial pressure of 3 mm Hg. Pericardium/ Pleura There is no pericardial effusion. There is an anterior echo-free space consistent with a fat pad. There is medium size hepatic cyst. MMode/2D Measurements & Calculations LVIDd: 5.0 cm LVOT diam: 2.1 cm LVIDs: 2.6 cm Ao root diam: 3.2 cm FS: 48.2 % asc Aorta Diam: 3.3 cm EPSS: 0.74 cm IVSd: 0.76 cm LVPWd: 1.1 cm LV dejesus. diameter/BSA (cm/m^2): 2.5 LV sys. diameter/BSA (cm/m^2): 1.3 LA A2 area: 21.0 cm2 RA long axis: 5.1 cm LA A4 area: 23.3 cm2 RA area: 18.0 cm2 LA length (vol): 5.6 cm RA vol: 54.5 ml LA vol: 73.9 ml RA : 27.3 ml/m2 LA vol index: 36.9 ml/m2 IVC diam: 1.1 cm RVD1 (basal): 3.7 cm TAPSE: 2.5 cm Doppler Measurements & Calculations Ao V2 max: 124.6 cm/sec LVOT Max Andres: 100.9 cm/sec Ao V2 mean: 79.7 cm/sec LV V1 max P.1 mmHg Ao max P.2 mmHg LV V1 VTI: 22.6 cm Ao mean P.0 mmHg SANDEEP(I,D): 2.9 cm2 Ao V2 VTI: 27.1 cm SANDEEP(V,D): 2.8 cm2 sev ratio: 0.83 SANDEEP indexed to BSA (cm^2/m^2): 1.4 MV E max andres: 76.4 cm/sec PA V2 max: 67.0 cm/sec MV A max andres: 103.2 cm/sec PA V2 mean: 47.4 cm/sec MV E/A: 0.74 PA mean P.98 mmHg Med Peak E' Andres: 3.9 cm/sec PA pr(Accel): 58.4 mmHg E/E' med: 19.7 Lat Peak E' Andres: 4.1 cm/sec E/E' lat: 18.6 E/e' average: 19.1 MV dec time: 0.31 sec SV(LVOT): 77.3 ml Reading Physician:04:28 PM
[2022-12-20 18:14] LABS: UR Morphine/Opiate cutoff 300 Negative (Negative); Ur Creatinine Normal (Normal); Ur Specific Gravity Normal (Normal); Urine Amphetamines Negative (Negative); Urine Barbiturates Negative (Negative); Urine Benzodiazepines Negative (Negative); Urine Cocaine Negative (Negative); Urine MDMA Negative (Negative); Urine Methadone Negative (Negative); Urine Methamphetamines Negative (Negative); Urine Oxycodone Negative (Negative); Urine Phencyclidine Negative (Negative); Urine Tetrahydrocannabinol Negative (Negative); Urine Tricyclic Antidepressant Negative (Negative); Urine pH Normal (Normal)
[2022-12-20 18:16] LABS: Bacteria Urine Occasional (0-1); RBC Urine None Seen (0-5/HPF); Squamous Epithelial Cell Urine 1-5 /HPF (0-5/HPF); WBC Urine 1-5/HPF (0-5/HPF)
[2022-12-20 18:17] LABS: Culture Indicated Urine Specimen Cultured
--- NOTE | 2022-12-20 19:21 | DI.MRI.S_ITS ---
PROCEDURE: MR HEAD/BRAIN WO CON INDICATIONS: stroke s/s TECHNIQUE: Non-contrast axial T1 spin echo, axial T2 fast spin echo, sagittal and axial FLAIR, coronal T2 fast spin echo, axial gradient echo, axial diffusion and ADC through the brain. COMPARISON: None. FINDINGS: Image quality: Excellent. CSF spaces: Ventricles appear symmetric in size and shape. Basal cisterns are patent. No extra-axial fluid collections. Brain: No intracranial bleeds or mass effects. There is cerebral volume loss for age. There are periventricular and deep white matter chronic small vessel ischemic changes. Brainstem appears normal. Diffusion-weighted images demonstrate a curvilinear cortical region of elevated signal intensity within the right superior frontoparietal lobe junction, measuring roughly 30 mm, which demonstrates moderate FLAIR signal elevation, as well as low ADC map signal. No chronic ischemic insults. Normal intravascular flow voids are present. Skull and face: Calvarial bone marrow is normal in signal. Orbits are normal. Sinuses: Sinuses and mastoids are clear. IMPRESSION: 1. Subacute right sided cerebral infarcts as above. 2. Mild volume loss and small vessel ischemic disease. Dictated by: Maru Diaz M.D. on 12/21/2022 at 11:04 Approved by: Maru Diaz M.D. on 12/21/2022 at 11:04
--- NOTE | 2022-12-20 19:36 | P.HP_ITS ---
History of Present Illness History of Present Illness Date Patient Seen: 12/20/22 Time Patient Seen: 19:36 Chief complaint: lt hand numb, lt arm heaviness Narrative: Brisa Messinais an 82-year-old female with history of diabetes, hypertension, dyslipidemia, macular degeneration on 81 mg aspirin daily this morning with complaint of left upper extremity weakness, lateral forearm felt heavy with tingling/numbness to hand/fingers, and impaired fine motor skills.? Patient states she has not had any headaches, chest pain, shortness of breath, nausea, vomiting, numbness, tingling weakness of her legs, right upper extremity or face, dizziness or feeling off balance, ambulating without issue.? She has some facial droop residual from Zaman's palsy in childhood. She takes an 81 mg aspirin daily, states she takes medication for blood pressure control and diabetes.? No known prior strokes.? She is had C-sections x3, denies other surgeries.? No tobacco, alcohol or illicit.? ? Her primary care is Radha Golden, she follows with Dr. Mauricio for Ophthalmology for her macular degeneration.? She denies drug allergies but has reported allergy to aspirin, clarified with patient.? She states she can take aspirin without issue.? No anticoagulants. In ED patient presented with a temp 99.6?, consistently hypertensive urgency 190/84, 200/90, with a reported episode of V-tach. NIH:4 with facial palsy, partial of lower face, limb ataxia in 1 limb, [id number] sensory loss. On admit temp 97.8?, continued hypertensive urgency 208/76, 59, 18, 96% on room air. No white count platelets 134 chronic thrombocytopenia documented as far back as 12 platelet count 102. Patient's chemistry panel is unremarkable with the exception of glucose 308, liver panel normal with exception alk-phos 127. CK 20, troponin, ETOH, and COVID are all negative. Head CT negative for any acute intracranial process. Urine was positive for glucose and trace leukocytes culture is pending. Head neck CTA showed prominent thyroid left, and borderline prominent lymph nodes in the mediastinum. Concerns for metastatic disease. EKG NSR rate [address] or T-wave changes. Initial NIH:4 in ED. Patient is admitted for left upper extremity weakness stroke versus TIA with hypertensive urgency and hyperglycemia. [facility] Medical History Diabetes History of Zaman's palsy Hyperlipidemia Hypertension Macular degeneration Surgical History History of Social History household members: spouse and family Smoking Status: Unknown if ever smoked alcohol intake: never Meds Home Medications and Allergies Allergies Allergy/AdvReac Type Severity Reaction Status Date / Time latex [LATEX] Allergy Intermediate rash Verified 12/20/22 14:50 Review of Systems Review of Systems Narrative: All 12 point systems reviewed with the patient and are negative except otherwise documented. Exam Vital Signs (past 8 hours): - 12/20/22 14:36 12/20/22 15:07 12/20/22 15:14 Temperature 99.6 F Pulse Rate 68 67 65 Respiratory Rate 20 24 Blood Pressure 190/84 H Pulse Oximetry 97 97 97 Oxygen Delivery Method Room Air Oxygen Flow Rate 12/20/22 15:14 12/20/22 15:15 12/20/22 15:15 Temperature Pulse Rate 66 Respiratory Rate 25 H Blood Pressure 198/79 H 184/77 H Pulse Oximetry 98 Oxygen Delivery Method Oxygen Flow Rate 12/20/22 15:21 12/20/22 15:21 12/20/22 15:25 Temperature Pulse Rate 66 Respiratory Rate 22 Blood Pressure 217/86 H 191/83 H Pulse Oximetry 98 Oxygen Delivery Method Oxygen Flow Rate 12/20/22 15:25 12/20/22 15:30 12/20/22 15:30 Temperature Pulse Rate 66 69 Respiratory Rate Blood Pressure 196/86 H Pulse Oximetry 98 96 Oxygen Delivery Method Oxygen Flow Rate 12/20/22 15:43 12/20/22 15:34 12/20/22 15:34 Temperature Pulse Rate 66 67 Respiratory Rate Blood Pressure 186/69 H 206/78 H Pulse Oximetry 96 Oxygen Delivery Method Oxygen Flow Rate 12/20/22 15:36 12/20/22 15:36 12/20/22 15:40 Temperature Pulse Rate 67 67 Respiratory Rate 24 Blood Pressure 200/90 H Pulse Oximetry 96 95 Oxygen Delivery Method Oxygen Flow Rate 12/20/22 15:40 12/20/22 15:45 12/20/22 15:45 Temperature Pulse Rate 66 Respiratory Rate 27 H Blood Pressure 186/69 H 183/81 H Pulse Oximetry 96 Oxygen Delivery Method Oxygen Flow Rate 12/20/22 15:50 12/20/22 15:50 12/20/22 15:55 Temperature Pulse Rate 59 L 58 L Respiratory Rate 26 H 23 Blood Pressure 181/81 H Pulse Oximetry 94 96 Oxygen Delivery Method Oxygen Flow Rate 12/20/22 15:55 12/20/22 16:21 12/20/22 16:21 Temperature 98.7 F Pulse Rate 60 Respiratory Rate Blood Pressure 187/79 H 184/79 H Pulse Oximetry Oxygen Delivery Method Oxygen Flow Rate 12/20/22 16:00 12/20/22 16:00 12/20/22 16:06 Temperature Pulse Rate 59 L 61 Respiratory Rate 21 20 Blood Pressure 184/86 H Pulse Oximetry 95 96 Oxygen Delivery Method Oxygen Flow Rate 12/20/22 16:06 12/20/22 16:11 12/20/22 16:11 Temperature Pulse Rate 64 Respiratory Rate Blood Pressure 180/76 H 194/84 H Pulse Oximetry 95 Oxygen Delivery Method Oxygen Flow Rate 12/20/22 16:15 12/20/22 16:15 12/20/22 16:20 Temperature Pulse Rate 61 60 Respiratory Rate Blood Pressure 193/84 H Pulse Oximetry 95 96 Oxygen Delivery Method Oxygen Flow Rate 12/20/22 16:20 12/20/22 17:35 12/20/22 18:42 Temperature 97.8 F Pulse Rate 59 L Respiratory Rate 18 Blood Pressure 184/79 H 208/76 H Pulse Oximetry 96 Oxygen Delivery Method Room Air Oxygen Flow Rate 0 Oxygen Delivery Method Room Air Oxygen Flow Rate 0 Narrative Exam Narrative: General: Patient is a well-developed, well-nourished pleasant obese elderly female in no distress at this time. HEENT: Normocephalic, atraumatic, extraocular muscles intact, oral pharynx is clear and mucous membranes are moist. Mild left lower facial droop. Neck is supple and symmetric, trachea is midline, no adenopathy. Negative for JVD Chest: Normal AP diameter and contour without kyphoscoliosis, no nasal flaring, retractions, tachypneic or labored breathing. Lungs: Auscultation of all lung moreira are clear without adventitious sounds, wheezes, rhonchi, or rales. Cardio: regular rate and rhythm without murmur, rubs, or gallops, no carotid bruit, no cardiac pulsations present. Abdomen: Soft nontender, negative for organomegaly, or masses. Bowel sounds are present in all 4 quadrants without guarding or rebound, no CVA tenderness. Musculoskeletal: Muscle strength and tone are equal within normal limits, no deformity, crepitus, effusions, cyanosis, clubbing or edema present. Full range of motion intact radial and pedal pulses are normal. Skin: Warm dry and intact without rashes, ulcerations or petechiae. Neuro: Alert and orientated x3, moves all extremities, sensation to touch int act, no gross deficits noted of cranial nerves. NIH:1 Acute s/s have resolved. Psych: Patient has a well-kept appearance, appropriate affect, mental status attitude thought context and judgment are appropriate for age. Objective Labs 12/20/22 14:55 12/20/22 14:55 Labs: Laboratory Results - last 24 hr 12/20/22 12/20/22 12/20/22 14:55 14:55 14:55 WBC 8.2 RBC 4.40 Hgb 11.9 L Hct 34.8 L MCV 79.2 L MCH 27.0 MCHC 34.0 RDW 14.1 Plt Count 134 L Neut % (Auto) 71.5 Lymph % (Auto) 19.6 L Bledsoe % (Auto) 6.3 Eos % (Auto) 1.8 L Baso % (Auto) 0.8 Neut # (Auto) 5800 Lymph # (Auto) 1600 Bledsoe # (Auto) 500 Eos # (Auto) 100 Baso # (Auto) 100 PT 11.9 INR 1.0 APTT 26 Sodium 136 L Potassium 3.6 Chloride 101 Carbon Dioxide 27 BUN 13 Creatinine 0.64 Estimated GFR > 60 BUN/Creatinine Ratio 20.3 Glucose 308 H Calcium 9.1 Total Bilirubin 0.5 AST 20 ALT 14 Alkaline Phosphatase 127 H Total Creatine Kinase 20 L CK-MB (CK-2) TNP CK-MB (CK-2) Rel Index TNP Troponin I < 0.012 Total Protein 6.9 Albumin 3.8 Globulin 3.1 Albumin/Globulin Ratio 1.2 Urine Color Urine Appearance Urine pH Ur Specific [place] Urine Protein Urine Glucose (UA) Urine Ketones Urine Occult Blood Urine Nitrate Urine Bilirubin Urine Urobilinogen Ur Leukocyte Esterase Urine RBC Urine WBC Ur Squamous Epith Cells Urine Bacteria Ur Culture Indicated? U Opiates 300ng/mL cut Ur Oxycodone Screen Urine Methadone Screen Ur Barbiturates Screen U Tricyclic Antidepress Ur Phencyclidine Scrn Ur Amphetamines Screen U Methamphetamines Scrn Ur MDMA Scrn (Ecstasy) U Benzodiazepines Scrn Urine Cocaine Screen U Marijuana (THC) Screen Ethyl Alcohol < 10 SARS-CoV-2 (PCR) 12/20/22 12/20/22 12/20/22 15:12 17:44 17:44 WBC RBC Hgb Hct MCV MCH MCHC RDW Plt Count Neut % (Auto) Lymph % (Auto) Bledsoe % (Auto) Eos % (Auto) Baso % (Auto) Neut # (Auto) Lymph # (Auto) Bledsoe # (Auto) Eos # (Auto) Baso # (Auto) PT INR APTT Sodium Potassium Chloride Carbon Dioxide BUN Creatinine Estimated GFR BUN/Creatinine Ratio Glucose Calcium Total Bilirubin AST ALT Alkaline Phosphatase Total Creatine Kinase CK-MB (CK-2) CK-MB (CK-2) Rel Index Troponin I Total Protein Albumin Globulin Albumin/Globulin Ratio Urine Color Yellow Urine Appearance Clear Urine pH 7.5 Ur Specific [place] 1.010 Urine Protein Negative Urine Glucose (UA) 3+ H Urine Ketones Negative Urine Occult Blood Negative Urine Nitrate Negative Urine Bilirubin Negative Urine Urobilinogen 1.0 Ur Leukocyte Esterase Trace H Urine RBC None seen Urine WBC 1-5/hpf Ur Squamous Epith Cells 1-5 /hpf Urine Bacteria Occasional (0-1) Ur Culture Indicated? Specimen cultured U Opiates 300ng/mL cut Negative Ur Oxycodone Screen Negative Urine Methadone Screen Negative Ur Barbiturates Screen Negative U Tricyclic Antidepress Negative Ur Phencyclidine Scrn Negative Ur Amphetamines Screen Negative U Methamphetamines Scrn Negative Ur MDMA Scrn (Ecstasy) Negative U Benzodiazepines Scrn Negative Urine Cocaine Screen Negative U Marijuana (THC) Screen Negative Ethyl Alcohol SARS-CoV-2 (PCR) Negative Assessment & Plan Assessment & Plan narrative: Brisa Messinais an 82-year-old female with history of diabetes, hypertension, dyslipidemia, macular degeneration on 81 mg aspirin daily with complaint of left upper extremity weakness.?Patient is admitted for left upper extremity weakness stroke versus TIA with hypertensive urgency and hyperglycemia. Patient's acute symptoms have resolved-tomrrow MR and echo, PT OT and speech evaluation, trend troponin and gentle hydration overnight. 1. Stroke versus TIA, left upper extremity weakness, acute, present on admission * Facial palsy, mild lower face-chronic baseline secondary to Zaman's palsy * limb ataxia x1 limb, [id number] sensory loss: Acute symptoms have resolved * ED: NIH:4, On Admit:NIH:1 facial palsy-chronic/Baseline * Head CT negative * Admitted under stroke protocol * Patient on strict fall precautions, aspiration precautions, NIH/neuro checks * Lipitor, Plavix, ASA * MR/echo ordered * PT OT and speech evaluation * Predominant left thyroid found on CTA: TSH/T4 ordered-recommend outpatient thyroid ultrasound * borderline prominent lymph nodes in the mediastinum-recommend follow-up chest CT as outpatient with PCP * Initial troponin negative, will trend x3 * Urine culture pending 2. Hypertensive urgency in the setting of essential hypertension, acute on chronic, present on admission * ED 200/90, 190/84, admit 208/76 * Unable to verify patient's BP medication * Labetalol q.4 hours as needed for BP> 180/100 * NS at 80 cc * Continue patient's lisinopril/HCTZ 3. Type 2 diabetes, with hyperglycemia, acute on chronic, with hyperlipidemia, chronic present on admission * admitted on diabetic protocol, glucose checks a.c. HS, low-dose sliding scale for coverage * Admit glucose 308, urine 3+ glucose * Continue Lantus, hold glipizide and metformin, increased Lipitor dose per protocol * A1c ordered 4. Macular degeneration, chronic, present on admission * follows with Dr. Mauricio for Ophthalmology 5. Obesity severe obesity, acute on chronic, present on admission * BMI 32.3 dietary consult ordered regarding nutritional education and informa tion for dietary, lifestyle, exercise, and weight changes. the patient is at much higher risk for medical and surgical complications due to obesity as it relates to chronic illnesses:, and acute illness. The patient's obesity increases the difficulty and complexity of medical and/or surgical interventions, management and increases the chances of poor outcome such as morbidity and mortality as well as impaired wound healing. 6. Thrombocytopenia, chronic, present on admission * platelets 134,documented as far back as 07/2017 last platelet count 102 * Monitor PLT Code status:Full Surrogate decision maker: Pastor addison COVID PCR:Negative DVT/VTE prophylaxis: Lovenox and SCD Disposition: Patient admitted for observation, to complete MR and echo, PT OT and speech evaluation, expected length of stay not expected to exceed 2 midnights. I have utilized all available immediate resources to obtain, update, or review the patient's current medications. I confirmed that the patient's advanced care plan is present, Code status is documented and/or surrogate decision maker is listed in the patient's medical record. I have personally reviewed patient's chart notes from PCP, specialists, diagnostic imaging, and laboratory results. Scores NIHSS Level of Conciousness: Alert, keenly responsive Ask month/age: Answers both questions correctly. Open/close eyes, close hand: Performs both tasks correctly Best gaze horizontal: Normal Visual moreira: No visual loss Facial palsy: Minor paralysis, flattened nasolabial fold, asymmetry on smiling Left arm drift: No drift for full 10 sec Right arm drift: No drift for full 10 sec Left leg drift: No drift for full 5 sec Right leg drift: No drift for full 5 sec Limb ataxia: Absent Sensory on face/arms/legs: Normal, no sensory loss Best language: No aphasia, normal Dysarthria: Normal Extinction or inattention: No abnormality Total NIH Stroke scale score: 1 Quality VTE Deep Vein Thrombosis/Pulmonary Embolism Present on Admission: No
[2022-12-20] MEDS: lisinopriL 20 MG TABLET PO (21:15)
[2022-12-20] MEDS: ATORVASTATIN 20 MG TABLET PO (21:15)
[2022-12-20] MEDS: SODIUM CHLORIDE 0.9% 1,000 ML 80 ML IV (21:16)
[2022-12-20] MEDS: INSULIN GLARGINE 100 UNIT/ML 3ML PEN 20 UNIT SUBCUT (21:28)
[2022-12-20 21:30] LABS: Magnesium 1.6 mg/dL (1.6-2.3)
[2022-12-20 21:58] LABS: NT-proBNP (BNP-Adult 18+) 225 pg/mL (<450)
[2022-12-20 22:01] LABS: Thyroid Stimulating Hormone 1.08 uIU/mL (0.47-4.68)
[2022-12-20 22:16] LABS: Troponin I < 0.012 ng/mL (0.01-0.034)
[2022-12-20 22:27] LABS: Free T4, Direct Thyroxine 1.53 ng/dL (0.78-2.19)
[2022-12-21] VITALS (19 sets, daily range): BP systolic 166–200; BP diastolic 62–78; PULSE 54–81; RESP 16–18; TEMP 36.2–37.2; O2SAT 95–100
[2022-12-21 06:55] LABS: BUN Creatinine Ratio 15.1 (6-22); Blood Urea Nitrogen 8 mg/dL (7-17); Calcium 8.7 mg/dL (8.4-10.2); Carbon Dioxide 28 mmol/L (22-32); Chloride 103 mmol/L (98-107); Cholesterol 133 mg/dL (140-199); Estimated Glomerular Filt Rate > 60 mL/min (>60); Glucose 105 mg/dL (80-110); HDL Cholesterol 36 mg/dL (40-60); HEMOLYSIS < 15 (0-50); LDL Cholesterol Calculated 81 mg/dL (<100); Potassium 3.1 mmol/L (3.4-5.1); Sodium 140 mmol/L (137-145); Triglycerides 81 mg/dL (35-150)
[2022-12-21 07:04] LABS: Troponin I < 0.012 ng/mL (0.01-0.034)
[2022-12-21 07:09] LABS: Add Manual Diff / Slide Review NO; Basophils Absolute Auto 100 /uL (0-100); Basophils Percent Auto 0.6 % (0-2); Eosinophils Absolute Auto 200 /uL (0-450); Eosinophils Percent Auto 2.1 % (2-4); Hematocrit 33.5 % (36-46); Hemoglobin 11.7 g/dL (12.0-16.0); Lymphocytes Absolute Auto 1900 /uL (1100-4500); Lymphocytes Percent Auto 21.4 % (25-40); Mean Corpuscular HGB Conc 34.8 % (30-36); Mean Corpuscular Hemoglobin 27.5 PG (26-34); Mean Corpuscular Volume 79.2 fL (80-100); Monocytes Absolute Auto 600 /uL (0-900); Monocytes Percent Auto 6.7 % (3-14); Neutrophils Absolute Auto 6000 /uL (1500-7000); Neutrophils Percent Auto 69.2 % (50-75); Platelet Count 124 X10^3/uL (150-400); Red Blood Cell Count 4.23 X10^6/uL (4.0-5.2); Red Cell Distribution Width 13.8 % (11.6-14.8); White Blood Cell Count 8.7 X10^3/uL (4.5-11.0)
[2022-12-21] MEDS: CLOPIDOGREL 75 MG TABLET PO (08:15)
[2022-12-21] MEDS: ENOXAPARIN 40 MG/0.4 ML SYRINGE SUBCUT (08:15)
[2022-12-21] MEDS: ASPIRIN EC 325 MG TABLET PO (08:15)
[2022-12-21] MEDS: hydroCHLOROthiazide 25 MG TABLET 12.5 MG PO (08:15)
[2022-12-21] MEDS: lisinopriL 20 MG TABLET PO (08:15)
[2022-12-21] MEDS: POTASSIUM CHLORIDE 20 MEQ TAB 40 MEQ PO ×2 (09:20→14:06)
[2022-12-21] MEDS: MAGNESIUM CHLORIDE 64 MG TABLET 128 MG PO (09:20)
[2022-12-21] MEDS: HYDRALAZINE 25 MG TABLET PO ×3 (09:23→21:54)
--- NOTE | 2022-12-21 09:26 | P.PN_ITS ---
Subjective Subjective Interval history: Feeling much better. Only has slight different sensation in her fingertips left side. Otherwise normal function of the left upper extremity. Eager to be discharged as soon as possible. Explained to her that she has further test pending. Apparently has a dental procedure scheduled for tomorrow. Exam Vital Signs (past 8 hours): - 12/21/22 04:00 12/21/22 08:15 12/21/22 08:00 Temperature 97.7 F 97.1 F L Pulse Rate 57 L 61 60 Respiratory Rate 16 18 Blood Pressure 192/74 H 192/62 H 192/62 H Pulse Oximetry 97 100 Oxygen Flow Rate 0 0 12/21/22 09:23 Temperature Pulse Rate 61 Respiratory Rate Blood Pressure 192/62 H Pulse Oximetry Oxygen Flow Rate Oxygen Delivery Method Room Air Oxygen Flow Rate 0 Narrative Exam Narrative: General:? Patient is a well-developed, well-nourished pleasant, in no apparent medical distress. HEENT:? Normocephalic, atraumatic, extraocular muscles intact, oral pharynx is clear and mucous membranes are moist.? Mild left lower facial droop-which is patient's baseline. Trachea is midline. Chest:? Normal AP diameter and contour without kyphoscoliosis, no tachypneic or labored breathing. Lungs:? Auscultation of all lung moreira are clear without wheezes or crackles. Cardio:? regular rate and rhythm without extra sounds or murmurs. Abdomen:? Soft nontender, negative for organomegaly, or masses.? Bowel sounds present. Musculoskeletal:? Muscle strength and tone are equal within normal limits, no deformity. Full range of motion intact radial and pedal pulses are normal. Skin:? Warm dry and intact without rashes, ulcerations or petechiae.? Neuro:? Alert and orientated x3, moves all extremities, sensation to touch intact. NIH:1 Acute on presentation, s/s have resolved. Psych:? No acute mood or depression signs. Objective Labs 12/21/22 06:15 12/21/22 06:15 Labs: Laboratory Results - last 24 hr 12/20/22 12/20/22 12/20/22 14:55 14:55 14:55 WBC 8.2 RBC 4.40 Hgb 11.9 L Hct 34.8 L MCV 79.2 L MCH 27.0 MCHC 34.0 RDW 14.1 Plt Count 134 L Neut % (Auto) 71.5 Lymph % (Auto) 19.6 L [place] % (Auto) 6.3 Eos % (Auto) 1.8 L Baso % (Auto) 0.8 Neut # (Auto) 5800 Lymph # (Auto) 1600 [place] # (Auto) 500 Eos # (Auto) 100 Baso # (Auto) 100 PT 11.9 INR 1.0 APTT 26 Sodium 136 L Potassium 3.6 Chloride 101 Carbon Dioxide 27 BUN 13 Creatinine 0.64 Estimated GFR > 60 BUN/Creatinine Ratio 20.3 Glucose 308 H Hemoglobin A1c Calcium 9.1 Magnesium Total Bilirubin 0.5 AST 20 ALT 14 Alkaline Phosphatase 127 H Total Creatine Kinase 20 L CK-MB (CK-2) TNP CK-MB (CK-2) Rel Index TNP Troponin I < 0.012 NT-Pro-B Natriuret Pep Total Protein 6.9 Albumin 3.8 Globulin 3.1 Albumin/Globulin Ratio 1.2 Triglycerides Cholesterol LDL Cholesterol, Calc HDL Cholesterol TSH Free T4 Urine Color Urine Appearance Urine pH Ur Specific [place] Urine Protein Urine Glucose (UA) Urine Ketones Urine Occult Blood Urine Nitrate Urine Bilirubin Urine Urobilinogen Ur Leukocyte Esterase Urine RBC Urine WBC Ur Squamous Epith Cells Urine Bacteria Ur Culture Indicated? U Opiates 300ng/mL cut Ur Oxycodone Screen Urine Methadone Screen Ur Barbiturates Screen U Tricyclic Antidepress Ur Phencyclidine Scrn Ur Amphetamines Screen U Methamphetamines Scrn Ur MDMA Scrn (Ecstasy) U Benzodiazepines Scrn Urine Cocaine Screen U Marijuana (THC) Screen Ethyl Alcohol < 10 SARS-CoV-2 (PCR) 12/20/22 12/20/22 12/20/22 14:55 14:55 14:55 WBC RBC Hgb Hct MCV MCH MCHC RDW Plt Count Neut % (Auto) Lymph % (Auto) [place] % (Auto) Eos % (Auto) Baso % (Auto) Neut # (Auto) Lymph # (Auto) [place] # (Auto) Eos # (Auto) Baso # (Auto) PT INR APTT Sodium Potassium Chloride Carbon Dioxide BUN Creatinine Estimated GFR BUN/Creatinine Ratio Glucose Hemoglobin A1c Cancelled Calcium Magnesium 1.6 Total Bilirubin AST ALT Alkaline Phosphatase Total Creatine Kinase CK-MB (CK-2) CK-MB (CK-2) Rel Index Troponin I NT-Pro-B Natriuret Pep Total Protein Albumin Globulin Albumin/Globulin Ratio Triglycerides Cholesterol LDL Cholesterol, Calc HDL Cholesterol TSH 1.08 Free T4 Urine Color Urine Appearance Urine pH Ur Specific [place] Urine Protein Urine Glucose (UA) Urine Ketones Urine Occult Blood Urine Nitrate Urine Bilirubin Urine Urobilinogen Ur Leukocyte Esterase Urine RBC Urine WBC Ur Squamous Epith Cells Urine Bacteria Ur Culture Indicated? U Opiates 300ng/mL cut Ur Oxycodone Screen Urine Methadone Screen Ur Barbiturates Screen U Tricyclic Antidepress Ur Phencyclidine Scrn Ur Amphetamines Screen U Methamphetamines Scrn Ur MDMA Scrn (Ecstasy) U Benzodiazepines Scrn Urine Cocaine Screen U Marijuana (THC) Screen Ethyl Alcohol SARS-CoV-2 (PCR) 12/20/22 12/20/22 12/20/22 14:55 14:55 15:12 WBC RBC Hgb Hct MCV MCH MCHC RDW Plt Count Neut % (Auto) Lymph % (Auto) [place] % (Auto) Eos % (Auto) Baso % (Auto) Neut # (Auto) Lymph # (Auto) [place] # (Auto) Eos # (Auto) Baso # (Auto) PT INR APTT Sodium Potassium Chloride Carbon Dioxide BUN Creatinine Estimated GFR BUN/Creatinine Ratio Glucose Hemoglobin A1c Calcium Magnesium Total Bilirubin AST ALT Alkaline Phosphatase Total Creatine Kinase CK-MB (CK-2) CK-MB (CK-2) Rel Index Troponin I NT-Pro-B Natriuret Pep 225 Total Protein Albumin Globulin Albumin/Globulin Ratio Triglycerides Cholesterol LDL Cholesterol, Calc HDL Cholesterol TSH Free T4 1.53 Urine Color Urine Appearance Urine pH Ur Specific [place] Urine Protein Urine Glucose (UA) Urine Ketones Urine Occult Blood Urine Nitrate Urine Bilirubin Urine Urobilinogen Ur Leukocyte Esterase Urine RBC Urine WBC Ur Squamous Epith Cells Urine Bacteria Ur Culture Indicated? U Opiates 300ng/mL cut Ur Oxycodone Screen Urine Methadone Screen Ur Barbiturates Screen U Tricyclic Antidepress Ur Phencyclidine Scrn Ur Amphetamines Screen U Methamphetamines Scrn Ur MDMA Scrn (Ecstasy) U Benzodiazepines Scrn Urine Cocaine Screen U Marijuana (THC) Screen Ethyl Alcohol SARS-CoV-2 (PCR) Negative 12/20/22 12/20/22 12/20/22 17:44 17:44 21:40 WBC RBC Hgb Hct MCV MCH MCHC RDW Plt Count Neut % (Auto) Lymph % (Auto) [place] % (Auto) Eos % (Auto) Baso % (Auto) Neut # (Auto) Lymph # (Auto) [place] # (Auto) Eos # (Auto) Baso # (Auto) PT INR APTT Sodium Potassium Chloride Carbon Dioxide BUN Creatinine Estimated GFR BUN/Creatinine Ratio Glucose Hemoglobin A1c Calcium Magnesium Total Bilirubin AST ALT Alkaline Phosphatase Total Creatine Kinase CK-MB (CK-2) CK-MB (CK-2) Rel Index Troponin I < 0.012 NT-Pro-B Natriuret Pep Total Protein Albumin Globulin Albumin/Globulin Ratio Triglycerides Cholesterol LDL Cholesterol, Calc HDL Cholesterol TSH Free T4 Urine Color Yellow Urine Appearance Clear Urine pH 7.5 Ur Specific [place] 1.010 Urine Protein Negative Urine Glucose (UA) 3+ H Urine Ketones Negative Urine Occult Blood Negative Urine Nitrate Negative Urine Bilirubin Negative Urine Urobilinogen 1.0 Ur Leukocyte Esterase Trace H Urine RBC None seen Urine WBC 1-5/hpf Ur Squamous Epith Cells 1-5 /hpf Urine Bacteria Occasional (0-1) Ur Culture Indicated? Specimen cultured U Opiates 300ng/mL cut Negative Ur Oxycodone Screen Negative Urine Methadone Screen Negative Ur Barbiturates Screen Negative U Tricyclic Antidepress Negative Ur Phencyclidine Scrn Negative Ur Amphetamines Screen Negative U Methamphetamines Scrn Negative Ur MDMA Scrn (Ecstasy) Negative U Benzodiazepines Scrn Negative Urine Cocaine Screen Negative U Marijuana (THC) Screen Negative Ethyl Alcohol SARS-CoV-2 (PCR) 12/21/22 12/21/22 12/21/22 06:15 06:15 06:15 WBC 8.7 RBC 4.23 Hgb 11.7 L Hct 33.5 L MCV 79.2 L MCH 27.5 MCHC 34.8 RDW 13.8 Plt Count 124 L Neut % (Auto) 69.2 Lymph % (Auto) 21.4 L [place] % (Auto) 6.7 Eos % (Auto) 2.1 Baso % (Auto) 0.6 Neut # (Auto) 6000 Lymph # (Auto) 1900 [place] # (Auto) 600 Eos # (Auto) 200 Baso # (Auto) 100 PT INR APTT Sodium 140 Potassium 3.1 L Chloride 103 Carbon Dioxide 28 BUN 8 Creatinine 0.53 Estimated GFR > 60 BUN/Creatinine Ratio 15.1 Glucose 105 D Hemoglobin A1c Calcium 8.7 Magnesium Total Bilirubin AST ALT Alkaline Phosphatase Total Creatine Kinase CK-MB (CK-2) CK-MB (CK-2) Rel Index Troponin I < 0.012 NT-Pro-B Natriuret Pep Total Protein Albumin Globulin Albumin/Globulin Ratio Triglycerides 81 Cholesterol 133 L LDL Cholesterol, Calc 81 HDL Cholesterol 36 L TSH Free T4 Urine Color Urine Appearance Urine pH Ur Specific [place] Urine Protein Urine Glucose (UA) Urine Ketones Urine Occult Blood Urine Nitrate Urine Bilirubin Urine Urobilinogen Ur Leukocyte Esterase Urine RBC Urine WBC Ur Squamous Epith Cells Urine Bacteria Ur Culture Indicated? U Opiates 300ng/mL cut Ur Oxycodone Screen Urine Methadone Screen Ur Barbiturates Screen U Tricyclic Antidepress Ur Phencyclidine Scrn Ur Amphetamines Screen U Methamphetamines Scrn Ur MDMA Scrn (Ecstasy) U Benzodiazepines Scrn Urine Cocaine Screen U Marijuana (THC) Screen Ethyl Alcohol SARS-CoV-2 (PCR) [facility] Medical History Diabetes History of Zaman's palsy Hyperlipidemia Hypertension Macular degeneration Surgical History History of Social History household members: spouse and family Smoking Status: Unknown if ever smoked alcohol intake: never Assessment & Plan Assessment & Plan narrative: 1. Stroke versus TIA, left upper extremity weakness, acute, present on admission, consistent with TIA at this time, MRI pending to reassure. 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 * ED: NIH:4, On Admit:NIH:1 facial palsy-chronic/Baseline * Head CT negative * Admitted under stroke protocol * Patient on strict fall precautions, aspiration precautions, NIH/neuro checks * Lipitor, Plavix, ASA, has low HDL and choice of Anti-lipid medication can be r evisited following discharge. * MR/echo ordered * PT OT and speech evaluation * Predominant left thyroid found on CTA:? TSH/T4 ordered which were normal- recommend outpatient thyroid ultrasound * borderline prominent lymph nodes in the mediastinum-recommend follow-up chest CT as outpatient with PCP * Initial troponin negative, will trend x3 * Urine culture pending 2. Hypertensive urgency in the setting of essential hypertension, acute on chronic, present on admission * ED 200/90, 190/84, admit 208/76 * Unable to verify patient's BP medication * Labetalol q.4 hours as needed for BP> 180/100 * NS at 80 cc -stopped due to hypertension * Continue patient's lisinopril/HCTZ, added hydralazine today. 3. Type 2 diabetes, with hyperglycemia, acute on chronic, with hyperlipidemia, chronic present on admission * admitted on diabetic protocol, glucose checks a.c. HS, low-dose sliding scale for coverage * Admit glucose 308, urine 3+ glucose, today's glucose normal range * Continue Lantus, hold glipizide and metformin, increased Lipitor dose per protocol * A1c ordered -remains pending 4. Macular degeneration, chronic, present on admission * follows with Dr. Mauricio for Ophthalmology 5. Obesity severe obesity, acute on chronic, present on admission * BMI 32.3? dietary consult ordered regarding nutritional education and information for dietary, lifestyle, exercise, and weight changes. ? the patient is at much higher risk for medical and surgical complications due to obesity as it relates to chronic illnesses:, and acute illness.? The patient's obesity increases the difficulty and complexity of medical and/or ? ? ? surgical interventions, management and increases the chances of poor outcome such as morbidity and mortality as well as impaired wound healing. 6. Thrombocytopenia, chronic, present on admission * ?platelets 134,documented as far back as 07/2017 last platelet count 102 * Monitor PLT -today 124 Follow clinically, tests and labs. Code status:Full Surrogate decision maker:? Pastor blount son COVID PCR:Negative DVT/VTE prophylaxis:? Lovenox and SCD Quality VTE Deep Vein Thrombosis/Pulmonary Embolism Present on Admission: No
[2022-12-21] MEDS: INSULIN LISPRO 100 UNIT/ML 3ML VIAL SUBCUT ×3 (12:17→21:52)
[2022-12-21] MEDS: LABETALOL 20 MG/4 ML SYRINGE 5 MG IV (14:06)
--- NOTE | 2022-12-21 14:12 | CM.DANOTE ---
Patient is an 82 yo female who was admitted on 12/20/22 for Numbness. Pt has MCR for insurance and her PCP is Radha Golden at [facility] in [place]. EMR was reviewed. Per , pt with hx of diabetes and macular degeneration and [place] Palsy at baseline and admitted for CVA vs TIA. MRI and Echo ordered. PT/OT/ST ordered and pending, no therapies available today Sun for initial eval. Per Rn, pt seems to have returned to baseline with ambulation. No concerns noted at this time. Pt has had very supportive family bedside. Per MD, pt has a scheduled dental procedure for tomorrow and requesting to d/c this evening so that she can complete that procedure tomorrow. MD agreeable to await MRI results and then Echo could be completed outpt if unable to be completed today. Plan: SW to follow closely for MRI results and possible Echo towards confirming pt safe for d/c home today and outpt f/u and any further identified needs. CHANDANA Marie Discharge Planning/Care Management CM Discharge Assessment Start: 12/21/22 14:10 Freq: Status: Active Protocol: Document 12/21/22 14:10 BF (Rec: 12/21/22 14:12 [id number]) Discharge Planning Assessment Assigned Supervisor Audit Clerks CHANDANA Victor DPOA/Assigned Designee Name spouse and Dtr Contact Information [phone] Advance Directives? No Advance Directives on File No History Provided By Patient,Family Member,Medical Record Has Patient been admitted in last 30 No days? Prior Living Arrangements House Household Members spouse,family Type of transporation used prior to Relies on Others admit Independent with ADL's Yes Is patient alert and oriented? Yes Needs Assistance With Home Chores / Shopping Caregiver for Another No DME Already Rented / Owned FWW / Walker Barriers to Discharge No Discharge Plan Home Transportation Arrangement Family to provide transport at d/c Referrals Initiated None needed Whiteboard Updated in Patient Room with Yes name and ext. # of Supervisor Audit Clerks Review Status In Process Please Provide Date Initial DC 12/21/22 Assessment Was Performed Next Review Type Continued Stay Review
[2022-12-21] MEDS: FUROSEMIDE 40 MG/4 ML VIAL 20 MG IV (15:41)
[2022-12-21] MEDS: HYDRALAZINE 20 MG/ML VIAL 10 MG IV (15:41)
[2022-12-21] MEDS: METOPROLOL TARTRATE 5 MG/5 ML INJ IV (19:58)
[2022-12-21] MEDS: METOPROLOL ER 25 MG TABLET PO (21:53)
[2022-12-21] MEDS: INSULIN GLARGINE 100 UNIT/ML 3ML PEN 20 UNIT SUBCUT (21:53)
[2022-12-21] MEDS: ATORVASTATIN 20 MG TABLET PO (21:54)
[2022-12-21] MEDS: SENNOSIDES 8.6 MG TABLET 17.2 MG PO (21:54)
[2022-12-22] VITALS (9 sets, daily range): BP systolic 152–164; BP diastolic 64–76; PULSE 64–66; RESP 16; TEMP 36.1–37.2; O2SAT 95–98
[2022-12-22 07:27] LABS: BUN Creatinine Ratio 18.6 (6-22); Blood Urea Nitrogen 13 mg/dL (7-17); Carbon Dioxide 27 mmol/L (22-32); Chloride 104 mmol/L (98-107); Estimated Glomerular Filt Rate > 60 mL/min (>60); Glucose 155 mg/dL (80-110); HEMOLYSIS < 15 (0-50); Potassium 3.9 mmol/L (3.4-5.1); Sodium 136 mmol/L (137-145)
[2022-12-22 07:28] LABS: Magnesium 1.8 mg/dL (1.6-2.3)
[2022-12-22] MEDS: FUROSEMIDE 20 MG TABLET PO (08:17)
[2022-12-22] MEDS: INSULIN LISPRO 100 UNIT/ML 3ML VIAL SUBCUT ×2 (08:17→12:05)
[2022-12-22] MEDS: hydroCHLOROthiazide 25 MG TABLET 12.5 MG PO (08:17)
[2022-12-22] MEDS: ASPIRIN EC 325 MG TABLET PO (08:17)
[2022-12-22] MEDS: CLOPIDOGREL 75 MG TABLET PO (08:18)
[2022-12-22] MEDS: METOPROLOL ER 25 MG TABLET PO (08:18)
[2022-12-22] MEDS: HYDRALAZINE 25 MG TABLET PO ×2 (08:18→12:04)
[2022-12-22] MEDS: lisinopriL 20 MG TABLET PO (08:18)
[2022-12-22] MEDS: ENOXAPARIN 40 MG/0.4 ML SYRINGE SUBCUT (08:19)
--- NOTE | 2022-12-22 09:23 | OT.IP.EVAL ---
Current Diagnoses Transient cerebral ischemic attack, unspecified (12/20/22) Past Medical History (Last Reviewed 12/21/22 @ 09:30 by Evelyn Newman MD) Diabetes History of Zaman's palsy Hyperlipidemia Hypertension Macular degeneration Surgical History (Last Reviewed 12/21/22 @ 09:30 by Evelyn Newman MD) History of Occupational Therapy Inpatient Evaluation/Re-Eval M1 PT/OT-IP Prior Functional Status Start: 12/22/22 09:26 Freq: NEEDED Status: Active Protocol: Document 12/22/22 08:45 [facility] (Rec: 12/22/22 09:50 [facility] [id number]) Medical Review Prior Functional Status Communication independent Mobility and Gait independent with no devices Activities of Daily Living and IADL's Completely independent with all ADL ,IADL and assist to take care of her . Social History Household Members spouse,family Living Arrangements House Number of Stairs To Enter/Railing? Ramp and then 3 steps with wooden wide bilateral rails on either side. Home Environment High Toilet,Walk in Shower Home Equipment Front Wheel Walker,Straight Cane,Power Wheelchair/Scooter, Shower Seat with Backrest,Hand Held Shower,Grab Bars In Shower Additional Social History Comment Pt's has up walker, fww, motorized wc, and cane at home. M2 OT-IP Current Condition Start: 12/22/22 09:26 Freq: Status: Active Protocol: Document 12/22/22 08:45 [facility] (Rec: 12/22/22 09:50 [facility] [id number]) Occupational Therapy Current Condition Current Condition Evaluation Date 12/22/22 Treatment Diagnosis Subacute right sided cerebral infarcts Diagnosis Onset Date 12/20/22 M3 OT- IP Subjective and Pain Start: 12/22/22 09:26 Freq: Status: Active Protocol: Document 12/22/22 08:45 [facility] (Rec: 12/22/22 09:50 [facility] [id number]) OT- Subjective Occupational Therapy Visit Type Type Initial Evaluation Visit Start Time 08:45 Visit Stop Time 09:23 Total Visit Minutes 38 Occupational Therapy Visit Comments Patient Comments Pt agreed to get up for OT eval and pt's daughter and present at the end of the session. Patient/Caregiver Goals TO go home. OT Pain Assessment Pain When Pain Assessed At Rest Pain Present Pain Present Denied Pain M4 OT- IP ADL's Start: 12/22/22 09:26 Freq: Status: Active Protocol: Document 12/22/22 08:45 [facility] (Rec: 12/22/22 09:50 [facility] [id number]) OT [id number] Comments OT Self-Feeding Comments Not at meal time. OT ADL-Grooming General Evaluation Grooming Ability Independent Comments OT Grooming Comments Pt able to do while standing in front of the sink. OT ADL-Oral Care General Eval Oral Care Ability Independent OT ADL-Dressing General Eval Lower Body Dressing Ability Standby Assistance Comments OT Dressing Comments Pt able to stand with her foot up on the recliner to mariela her shoes with close SBA for balance, suggested pt just sit for now for LB dressing needs. OT ADL-Toileting General Evaluation Toileting Ability Independent Comments OT Toileting Comments Pt able to use the toilet on her own independently. OT ADL-Bathing Comments OT Bathing Comments At this time due to decreased dynamic balance would be best to use a shower chair for showering needs at this time. M5 OT- IP IADL's Start: 12/22/22 09:26 Freq: Status: Active Protocol: Document 12/22/22 08:45 [facility] (Rec: 12/22/22 09:50 [facility] [id number]) OT-Instrumental Activities of Daily Living Deficits IADL Deficits Identified Deficits Home Safety Awareness Awareness of Need for Assistance at Home Good Awareness Ability to Problem Solve Emergency Able to Problem Solve Situations Meal Preparation Meal Preparation Comments Would be best to have assist at this time. Movie Projectionist Movie Projectionist Comments Would be best to have assist at this time. Driving Driving Comments Pt's daughter states looking into having assist for her parents for driving at this time. M6 OT- IP Functional Cognition Start: 12/22/22 09:26 Freq: Status: Active Protocol: Document 12/22/22 08:45 [facility] (Rec: 12/22/22 09:50 [facility] [id number]) Cognitive Factors Limiting Selfcare Function Cognitive Ability Level of Alertness Alert Patient Orientation Name,Age,Birthday,Month,Date, Year,Day of Week,Place, Situation Attention Span Ability Capable of Focused Attention, Capable of Sustained Attention Ability to Follow Commands Able to Follow Multi-Step Commands Cognitive Comments Cognitive Assessment Comments Pt able to follow multiple commands well. Pt scored 90seconds on [place] Making Part B which is 80% for her age group and implies mild impairments for visual attention, speed of processing , executive functioning, mental flexibility, and task switching. OT- Vision and Hearing OT- Hearing Assessment OT- Hearing Assessment WFL OT- Vision Assessment Visual Acuity Glasses For Reading Visual Attentiveness WFL Occular Pursuits WFL Visual Convergence WFL Visual Waters WFL Diplopia Absent M7 OT- IP Mobility and Balance Start: 12/22/22 09:26 Freq: Status: Active Protocol: Document 12/22/22 08:45 [facility] (Rec: 12/22/22 09:50 [facility] [id number]) OT- Bed Mobility Assessment Supine to Sit Supine to Sit Assist Independent Sit to Supine Sit to Supine Assist Independent Scooting Scooting to Edge of Bed Independent OT-Transfer Assessment Sit to and From Stand Sit to and from Stand Independent Transfers Transfer Ability Independent,Standby Assistance Technique Transfer Destination Bed,Toilet Transfer Technique Stand Step Pivot Devices Transfer Assistive Devices None Comments Mobility Comments Pt distant SBA in the room and able to use walk in and out of the toilet on her own at this time. OT- Balance Assessment Sitting Balance and Reactions Static Sitting Balance Ability Normal Dynamic Sitting Balance Ability Normal Standing Balance and Reactions Static Standing Balance Ability Good Dynamic Standing Balance Ability Fair Comments Other Balance Tests/Deviations/Treatment Pt needing CGA/close SBA while : placing her foot up on the bed in order to mariela her socks . Pt states usually donns her socks on a lower surface. M8 OT- IP Objective Assessments Start: 12/22/22 09:26 Freq: Status: Active Protocol: Document 12/22/22 08:45 [facility] (Rec: 12/22/22 09:50 [facility] [id number]) OT Gross Range of Motion Upper Extremity Range of Motion Assessment Within Functional Limits OT Strength Upper Extremity Strength Assessment Within Functional Limits OT- Coordination Assessment Upper Extremity Finger to Nose Test Within Functional Limits Finger Tapping Test Left UE Impaired Comments Coordination Comments Right hand 9 hole peg 28 seconds- between 10-25% for her age group Left hand 9 hole peg 39 seconds- below 10% OT-Muscle Tone Assessment Muscle Tone WNL Yes OT Sensation Assessment Comments Summary Comments Decreased sensation for her left hand and fingertips. Decreased kinesthesia for left hand from wrist to distally. M9 OT- IP Assessment and Plan Start: 12/22/22 09:26 Freq: Status: Active Protocol: Document 12/22/22 08:45 [facility] (Rec: 12/22/22 09:50 [facility] [id number]) OT Summary Assessment and Plan Potential Rehabilitation Potential Excellent Analytic Complexity at Evaluation Moderate Summary OT Impairments Balance,Coordination,Sensation ,Functional Mobility,Dressing, Bathing Progress Towards Goals Progressing Toward Goals Assessment Summary Pt MOD complexity and main barriers are decreased dynamic balance, sensation in left hand, and decreased coordination L> R hand at this time. Pt's family looking to increased their assist as currently pt takes care of her for mostly IADL needs and drives. Pt when medically stable to go home with assist. Goals Dressing Goal Independent Bathing Goal Independent Shower Transfer Goal Independent OT-Other Goals Pt to be independent to do FMS exercises on her own to help improve FMS for ADL needs. Days to Meet Goals 5 Frequency of Treatment Frequency Of Treatment Once a Day Treatment Plan OT Treatment Plan ADL Training,Functional Mobility,Patient/Family Education,Discharge Planning Discharge Recommendations OT Discharge Recommendations Home with Assistance Transportation Needs at Discharge Private Vehicle
--- NOTE | 2022-12-22 10:04 | PT.IIE ---
Current Diagnoses Transient cerebral ischemic attack, unspecified (12/20/22) Surgical History (Last Reviewed 12/21/22 @ 09:30 by Evelyn Newman MD) History of Medical History (Last Reviewed 12/21/22 @ 09:30 by Evelyn Newman MD) Diabetes History of Zaman's palsy Hyperlipidemia Hypertension Macular degeneration Physical Therapy Inpatient Evaluation/Re-Eval M1 PT/OT-IP Prior Functional Status Start: 12/22/22 09:26 Freq: NEEDED Status: Active Protocol: Document 12/22/22 09:57 ES (Rec: 12/22/22 10:04 ES [id number]) Medical Review Prior Functional Status Medical History Reviewed Yes Communication independent Mobility and Gait independent with no devices Activities of Daily Living and IADL's Completely independent with all ADL ,IADL and assist to take care of her . Social History Household Members spouse,family Living Arrangements House Number of Floors (Floors) Two Floors Number of Stairs To Enter/Railing? Ramp and then 3 steps with wooden wide bilateral rails on either side. Lives on upper level, family lives below. Home Environment High Toilet,Walk in Shower Home Equipment Front Wheel Walker,Straight Cane,Power Wheelchair/Scooter, Shower Seat with Backrest,Hand Held Shower,Grab Bars In Shower Additional Social History Comment Pt's has up walker, fww, motorized wc, and cane at home. M2 PT-IP Current Condition Start: 12/22/22 09:57 Freq: NEEDED Status: Active Protocol: Document 12/22/22 09:57 ES (Rec: 12/22/22 10:04 ES [id number]) Physical Therapy Current Condition Current Condition Evaluation Date 12/22/22 Treatment Diagnosis Stroke vs TIA Onset Date 12/20/22 M3 PT-IP Subjective Start: 12/22/22 09:57 Freq: NEEDED Status: Active Protocol: Document 12/22/22 09:57 ES (Rec: 12/22/22 10:04 ES [id number]) Subjective Physical Therapy Visit Type Type Initial Evaluation Visit Start Time 09:42 Visit Stop Time 09:50 Total Visit Minutes 8 Physical Therapy Visit Comments Patient Comments Patient reported she is still having some numbness in her L finger tips, otherwise feels like she is back to her normal . Denied weakness in extremities. M4 PT-IP Mobility and Gait Start: 12/22/22 09:57 Freq: NEEDED Status: Active Protocol: Document 12/22/22 09:57 ES (Rec: 12/22/22 10:04 ES [id number]) PT-Bed Mobility Assessment Supine to Sit Supine to Sit Independent Sit to Supine Sit to Supine Independent Scooting Scooting to Edge of Bed Independent Scooting Up and Down in Bed Independent PT-Transfer Assessment Sit to and From Stand Sit to and from Stand Independent Equipment Transfer Assistive Device None Orthotic/Prosthetic Devices or Brace: No Transfers Transfer Destination Bed Transfer Technique Ambulation Transfer Ability Level of Assist Independent Comments Mobility Comments No LOB with mobility tasks. Gait Assessment Gait Gait Assistance Required: Independent Distance (Feet) 220 Assistive Devices Assistive Device None Orthotic/Prosthetic Devices or Brace: No Gait Deviations General Gait Pattern Decreased Stride Length,Narrow Based Gait Comments Gait Comments No LOB including with turning B, ambulated with fair-good speed. Stair Climbing Assessment Evaluation Level of Assist On Stairs Independent Devices Stair Climbing Assistive Devices Left Railing Technique/Endurance Stair Climbing Direction Ascend and Descend Stair Climbing Technique Step Over Step Number of Steps Climbed 3 Query Text: Stair Climbing Set # Repetitions (reps) 1 PT-Balance Assessment Sitting Balance and Reactions Static Sitting Balance Ability Normal Dynamic Sitting Balance Ability Normal Standing Balance and Reactions Static Standing Balance Ability Good Dynamic Standing Balance Ability Good Device Used None Balance Tests Single Limb Standing 3 seconds Comments Other Balance Tests/Deviations/Treatment 4-stage balance test = 10/10/0 : /0 M5 PT-IP Objective Assessments Start: 12/22/22 09:57 Freq: NEEDED Status: Active Protocol: Document 12/22/22 09:57 ES (Rec: 12/22/22 10:04 ES [id number]) Orientation Orientation/Cognition Level of Alertness Alert Orientation Name,Age,Birthday,Month,Date, Year,Day of Week,Place, Situation Language Function Ability No Deficits Noted Safety Awareness Understands Safety Issues Memory Description No Deficits Noted Gross Range of Motion Upper Extremity ROM Assessment Within Functional Limits Lower Extremity ROM Assessment Within Functional Limits Strength Upper Extremity Strength Assessment Within Functional Limits Lower Extremity Strength Assessment Within Functional Limits Coordination Assessment Gross Coordination Gross Coordination WNL Sensation Assessment Comments Sensation Comments Patient reported numbness in L fingertips Muscle Tone Muscle Tone WNL Yes M7 PT-IP Assessment and Plan Start: 12/22/22 09:57 Freq: NEEDED Status: Active Protocol: Document 12/22/22 09:57 ES (Rec: 12/22/22 10:04 ES [id number]) PT Summary Assessment and Plan Potential Rehabilitation Potential Excellent Status of Condition at Evaluation Stable Summary Assessment Summary Patient is a 82 year old female who presents at her baseline functional mobility. She was able to perform all mobility tasks at independent level without AD, with no LOB throughout. She had some lightheadedness/dizziness upon sitting from supine that resolved quickly. No symptoms upon standing. She is safe to d/c home with family, no further skilled therapy is indicated at this time. Frequency of Treatment Frequency Of Treatment Discharge Recommendations To Nursing Amount of Assist Needed Independent Discharge Recommendations PT Discharge Recommendations Home Transportation Needs at Discharge Private Vehicle
--- NOTE | 2022-12-22 13:52 | ST.IPIE ---
Visit Care Team Role Provider Type Keiry Spicer PA-C Primary Care Provider Non-Staff Specialty: Internal Medicine Address: [facility] [place], [address] Email: Lilia Romero DO Emergency Provider Physician Referring Provider Specialty: Emergency Medicine Address: [address] [place] [address], [id number] Email: [email or web address] Evelyn Newman MD Admit Provider Physician Attending Provider Specialty: Family Practice Address: [address] [place] [address], [id number] Phone: Fax: Email: [email or web address] Diagnoses Transient cerebral ischemic attack, unspecified (12/20/22) Past Medical History (Last Reviewed 12/21/22 @ 09:30 by Evelyn Newman MD) Diabetes (Medical) History of Zaman's palsy (Medical) Hyperlipidemia (Medical) Hypertension (Medical) Macular degeneration (Medical) ST IP Initial Evaluation Report [employer] PROGRAMMER Clinical Instructor Line Start: 12/22/22 10:51 Freq: Status: Active Protocol: Document 12/22/22 10:53 BE (Rec: 12/22/22 11:14 BE [id number]) Clinical Instructor Signature Clinical Instructor Clinical Instructor Yes [employer] PROGRAMMER Clinical Swallow Evaluation Start: 12/22/22 10:51 Freq: Status: Active Protocol: Document 12/22/22 10:53 BE (Rec: 12/22/22 11:14 BE [id number]) Clinical Swallow Evaluation Session Time Visit Start Time 09:55 Visit Stop Time 10:05 Total Visit Minutes 10 Setting Assessment Location Acute Care Visit Type Note Type Initial evaluation Patient Information Identification Type Name,Wristband History Per hospitalist, Brisa Green ?is an 82-year-old female with history of diabetes, hypertension, dyslipidemia, macular degeneration on 81 mg aspirin daily this morning with complaint of left upper extremity weakness, lateral forearm felt heavy with tingling/numbness to hand/ fingers, and impaired fine motor skills.? Patient states she has not had any headaches, chest pain, shortness of breath, nausea, vomiting, numbness, tingling weakness of her legs, right upper extremity or face, dizziness or feeling off balance, ambulating without issue.? She has some facial droop residual from Zaman's palsy in childhood. She takes an 81 mg aspirin daily, states she takes medication for blood pressure control and diabetes. ? No known prior strokes. No tobacco, alcohol or illicit.? ? Her primary care is Radha Golden, she follows with Dr Gary Mauricio for Ophthalmology for her macular degeneration.? NIH:4 with facial palsy, partial of lower face, limb ataxia in 1 limb, mild-to- moderate sensory loss. Head CT negative for any acute intracranial process. Patient is admitted for left upper extremity weakness stroke versus TIA with hypertensive urgency and hyperglycemia. ST ordered for TIA/stroke ruleout. Subjective Observations Pt was sitting upright at edge of bed upon ST entry. Pt was alert and oriented, and denied having any difficulty with speech, thinking, processing, or swallowing. She agreed to participate in assessment of speech and swallowing. Pt reported cancellation of tooth implant due to hospitalization; will schedule at later date. Reported by Patient Current Diet Regular,Thin liquids Baseline Feeding Method Independent in self-feeding Objective Assessment Mental Status Alert,Responsive,Cooperative Oral Integrity WFL Dentition Missing teeth Lip Function Within normal limits Observation of Lips at Rest Left sided weakness/Drooping Pucker Within normal limits Lip Retraction Within normal limits Alternating Pucker/Lip Retraction Within normal limits Tongue Function Mild impairment Observations of Tongue at Rest Within normal limits Tongue Protrusion Reduced range of motion Tongue Retraction Within normal limits Tongue Lateralization Within normal limits Jaw Function Within normal limits Observations of Jaw at Rest Within normal limits Jaw Opening Within normal limits Jaw Closing Within normal limits Jaw Lateralization Within normal limits Jaw Protrusion Within normal limits Jaw Retraction Within normal limits Hard/Soft Palate Function Within normal limits Observations of Hard/Soft Palate Within normal limits Nasality Within normal limits Phonation Within normal limits Respiratory Sufficiency Within normal limits Comment Pt demonstrated mildly limited tongue ROM with upward movements and left sided facial droop, which pt noted were both baseline for her. Facial droop related to previous Hx of Zaman's Palsy. Reduced lip seal noted during OME. Bilateral growths noted under tongue, consistent with mandibular criss. Food and Liquid Trials Position During Assessment Upright (90 degrees),In bed Liquids Trialed Thin Administration Type Straw,Self-feeding Oral Impairment Within functional limits Oral Phase Comments No concerns noted with oral phase swallowing mechanisms. Mildly limited tongue ROM and left facial side droop did not negatively affect swallowing sequences or safety. Do no recommend further speech therapy. Pharyngeal Impairment Within normal limits Pharyngeal Phase Comments No wet vocal quality, coughing , or choking noted following swallows. Cannot rule out silent aspiration with clinical swallow evaluation. No concerns with pharyngeal phase swallow. Comment Endurance not assessed due to limited trials. Results Oral and pharyngeal phase swallow within functional limits Findings Swallowing Function Within functional limits Swallowing Function Comments No concerns noted Severity of Swallow Impairment Within functional limits Impact on Safety and Functioning No limitations Comments Pt present with swallow WNL. ST is not recommended at this time. Recommendations Safety Precautions/Swallowing Feed only when alert,Remain Recommendations upright (90 degrees) during all oral intake Medication Recommendations As Tolerated Discharge Recommendations Home Education Patient/Caregiver Education Described results of evaluation,Patient expressed understanding of evaluation, Patient expressed agreement with goals & treatment plans
--- NOTE | 2022-12-22 14:30 | CM.DPC ---
DCP Discharge Home with HH Per MD, pt is medically stable to d/c home today and agreeable with HH. Per PT/OT eval, recommending safe d/c home with assist and HH. SW met bedside with pt and Dtr and explained role and they confirm they are agreeable with d/c home today and pt denies any hx of HH and SW discussed HH services and frequency and provided the HH Choice list. Dtr lives in [place] but son and Dtr inlaw live about 3 miles away from pt. Pt's spouse has hx of significant stroke with deficits and memory issues but physically does not require assist and does not wander or exit seek but does not understand why he cannot drive or spend all his money. Dtr and pt confirm that pt likely is stressed and has some CG burnout. SW provided the Senior Resource Guidebook and earmarked PP CG agencies and strongly encouraged Dtr to call a few and determine what would be the most helpful (electric train driver, shopping, cooking, cleaning, outings, etc.) and time of day. Dtr very appreciative and Dtr and pt feel they can afford a supervisor roving department caregiver to help reduce stress. SW made [facility] referral based on Vendor Calendar and called and confirmed they can open the pt within 48 hours if PT/OT/CLEARANCE REPRESENTATIVE ordered and then they will add RN after initial start of care to increase start time. SHANKAR faxed clinicals including signed F2F, HH orders, and d/c summ. SW updated MD and RN. Plan: Patient to d/c home via Dtr POV today and [facility] to open pt to service after d/c and Dtr to assist with setting up PP CG after discharge. CHANDANA Marie
[2022-12-23 01:33] LABS: Labcorp Hemoglobin (Hb) A1c 7.8 % (4.8-5.6)
--- NOTE | 2023-01-25 16:24 | P.DS_ITS ---
History of Present Illness History of Present Illness Date Patient Seen: 12/22/22 Chief complaint: lt hand numb, lt arm heaviness Narrative: Feeling much better.? Only has slight different sensation in her fingertips left side.? Otherwise normal function of the left upper extremity.? Eager to be discharged as soon as possible.?.? Apparently has a dental procedure scheduled and would like to be home for that. Discharge Providers Provider Date of admission: 12/20/22 16:03 Discharge Date: 12/22/22 Primary care physician: Keiry Spicer PA-C Consults: 12/20/22 19:21 Consult to Discharge Planning Routine Comment: Consult to Occupational Therapy Evaluate & Treat Comment: Physician Instructions: Evaluate and treat Consult to Physical Therapy Evaluate & Treat Comment: Physician Instructions: Evaluate and Treat Consult to Speech Therapy Evaluate & Treat Comment: Physician Instructions: Evaluate and treat 12/20/22 19:26 Consult to Dietitian, Adult Urgent Comment: Reason For Exam: BMI 32.2 12/22/22 07:39 Consult to WALL WORKER - Technical Services Rep 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 can do?? 12/22/22 11:12 Consult to Home Health Routine Comment: subacute infarct, diabetes, macular degeneration Reason For Exam: Set up HH PT/OT/WALL WORKER for d/c home, add RN after Discharge provider: Evelyn Newman MD Summary Hospital Course Discharge Diagnosis: Acute CVA Thrombocytopenia, chronic, present on admission Diabetes History of Zaman's palsy Hyperlipidemia Hypertension Macular degeneration Obesity Hospital Course: Brisa Norma ?is an 82-year-old female with history of diabetes, hypertension, dyslipidemia, macular degeneration on 81 mg aspirin daily this morning with complaint of left upper extremity weakness, lateral forearm felt heavy with tingling/numbness to hand/fingers, and impaired fine motor skills on presentation.? Patient stated she has not had any headaches, chest pain,? shortness of breath, nausea, vomiting, numbness, tingling weakness of her legs, right upper extremity or face, dizziness or feeling off balance, ambulating without issue.? She had some facial droop residual from Zaman's palsy in childhood. She takes an 81 mg aspirin daily, states she takes medication for blood pressure control and diabetes.? No known prior strokes.? She is had C- sections x3, denies other surgeries.? No tobacco, alcohol or illicit.? ? Her primary care is Radha Golden, she follows with Dr. Mauricio for Ophthalmology for her macular degeneration.? She denied drug allergies but has reported all ergy to aspirin, clarified with patient.? She states she can take aspirin without issue.? No anticoagulants.? In ED patient presented with a temp 99.6?, consistently hypertensive urgency 190/84, 200/90, with a reported episode of V- tach. NIH:4 with facial palsy, partial of lower face, limb ataxia in 1 limb, [id number] sensory loss. MRI confirmed:1. Subacute right sided cerebral infarcts and 2. Mild volume loss and small vessel ischemic disease. Echocardiogram confirmed no obvious source of CVA and had an ejection fraction of 60-65%. On the day of discharge patient's blood pressure was reasonably controlled. Medication for this included: Hydralazine 25 mg p.o. q.i.d., lisinopril 20 mg daily and metoprolol ER 25 mg. On discharge patient was on clopidogrel 75 mg daily for further 20 days and aspirin 81 mg daily for lifetime for stroke prevention. Status at Discharge Cognitive/behavioral status at discharge: at baseline, oriented Functional status at discharge: independent ambulation Overall status at discharge: patient is back to baseline Time Spent with Patient Time spent: Greater than 30 minutes Exam Vital Signs (past 8 hours): Oxygen Delivery Method Room Air Oxygen Flow Rate 0 Narrative Exam Narrative: General:? Patient is a well-developed, well-nourished pleasant, in no apparent medical distress. HEENT:? Normocephalic, atraumatic, extraocular muscles intact, Chest:? Normal AP diameter and contour Lungs:? Auscultation of all lung moreira are clear without wheezes or crackles. Cardio:? regular rate and rhythm without extra sounds or murmurs. Abdomen:? Soft nontender, negative for organomegaly, or masses.? Bowel sounds present. Musculoskeletal:? Muscle strength and tone are equal within normal limits Skin:? Warm dry and intact without rashes, ulcerations or petechiae.? Neuro:? Alert and orientated x3, moves all extremities, sensation to touch intact. NIH:1 Acute on presentation, s/s have resolved. Psych:? No acute mood or depression signs. Objective Labs 12/21/22 06:15 12/22/22 06:05 [facility] Medical History Diabetes History of Zaman's palsy Hyperlipidemia Hypertension Macular degeneration Surgical History History of Social History household members: spouse and family Smoking Status: Unknown if ever smoked alcohol intake: never Discharge Plan Discharge Plan Patient Disposition: Home Health Service Discharge orders & Medications Prescriptions: New atorvastatin 20 mg Tablet 80 mg PO BEDTIME Qty: 120 0RF hydralazine 25 mg Tablet 25 mg PO ACHS Qty: 120 0RF clopidogrel 75 mg Tablet 75 mg PO DAILY Qty: 20 0RF insulin glargine [Lantus Solostar U-100 Insulin] 100 unit/mL (3 mL) Insulin P en 20 unit SUBCUT BEDTIME Qty: 15 0RF sennosides [senna] 8.6 mg Tablet 17.2 mg PO BEDTIME Qty: 30 0RF lisinopril 20 mg Tablet 20 mg PO DAILY Qty: 30 0RF metoprolol succinate 25 mg Tablet Extended Release 24 Hr 25 mg PO BID Qty: 60 0RF alum-mag hydroxide-simeth [Mag-Al Plus] 200-200-20 mg/5 mL Suspension 30 ml PO Q6HR PRN (Reason: Dyspepsia) Qty: 500 0RF aspirin 81 mg capsule 81 mg PO DAILY Qty: 30 0RF Rx Instructions: Patient to take daily for rest of life. Follow up/Referrals: Keiry Spicer PA-C [Primary Care Provider] - Visit Report/Discharge Packet Instructions: Recommendations to Help Prevent High Blood Pressure, Reducing Your Risk of Heart Disease When You Have Diabetes, Strokes: Prevention (Alternative Therapy), DI for Stroke-Ischemic, DI for Diabetes Type 2, High-Potassium Diet, Dietary Saturated Fat Not Associated with Risk for Heart Disease or Stroke, Right Brain Stroke, Insulin Glargine (rDNA origin) Injection, Hydralazine, Metoprolol Stand Alone Forms: Patient Portal/API, Stroke Signs & Symptoms Discharge Data Primary Care Provider: Keiry Spicer Discharges patient from system. Discharge Date/Time: 12/22/22 16:10 Quality VTE Deep Vein Thrombosis/Pulmonary Embolism Present on Admission: No
== END 2022-12-22 16:10 | disposition home health service (06) | DRG 66 ==
LOC: ED 15:14 → AC 16:03
PROVIDERS: Nurse Practitioner Family; Admitting Provider Neuromusculoskeletal Medicine, Sports Medicine; Emergency Provider Emergency Medicine; PCP Physician Assistant; Referring Provider Emergency Medicine; Visit Provider Neuromusculoskeletal Medicine, Sports Medicine
DX: I63.9 Cerebral infarction, unspecified (principal); I16.0 Hypertensive urgency; E11.65 Type 2 diabetes mellitus with hyperglycemia; I10 Essential (primary) hypertension; E78.5 Hyperlipidemia, unspecified; E66.01 Morbid (severe) obesity due to excess calories; D69.6 Thrombocytopenia, unspecified; R29.810 Facial weakness; R20.2 Paresthesia of skin; R20.0 Anesthesia of skin; R29.704 NIHSS score 4; R29.701 NIHSS score 1; Z68.32 Body mass index [BMI] 32.0-32.9, adult; Z20.822 Contact with and (suspected) exposure to COVID-19; Z79.4 Long term (current) use of insulin
CPT/HCPCS: 36415; 70450; 70496; 70498; 70551; 80048; 80053; 80061; 80305; 80320; 81001; 82550; 82962; 83036; 83735; 83880; 84439; 84443; 84484; 85025; 85610; 85730; 87086; 87635; 92610; 93005; 93306; 96374; 97161; 97166; 99285; 99291; C9803; J0360; J1650; J1815; J1940

== ENCOUNTER 2022-12-28 12:29 | Emergency (ER) | payer MEDICARE, SELFPAY ==
[2022-12-20 16:41] VITALS: BMI 32.3
[2022-12-28 12:37] VITALS: BP 204/89; PULSE 63; PULSE 66; RESP 18; TEMP 36.8; O2SAT 98; BMI 32.3
[2022-12-28 12:38] VITALS: BP 204/89; PULSE 64; O2SAT 98
--- NOTE | 2022-12-28 12:42 | DI.RAD.S_ITS ---
PROCEDURE: XR ELBOW RT MIN 3V INDICATIONS: R elbow pain s/p fall TECHNIQUE: 3 views of the elbow were acquired. COMPARISON: None. FINDINGS: Bones: No fractures or dislocations. No suspicious bony lesions. Soft tissues: No elbow joint effusion. No suspicious soft tissue calcifications. IMPRESSION: No acute fracture. No osseous lesion. If symptoms and/or clinical suspicion for pathology persist, further assessment with repeat, or advanced imaging (e.g., CT, MRI, or bone scan) may be helpful for further assessment. Dictated by: Maru Diaz M.D. on 12/28/2022 at 12:29 Approved by: Maru Diaz M.D. on 12/28/2022 at 12:29
--- NOTE | 2022-12-28 12:42 | DI.RAD.S_ITS ---
PROCEDURE: XR RIBS RT MIN 3V W CXR 1V INDICATIONS: R rib pain s/p fall TECHNIQUE: 2 views of the right ribs were acquired, along with a single view chest. COMPARISON: None. FINDINGS: Surgical changes and devices: None. Bones and chest wall: No fractures or dislocations. No suspicious bony lesions. Overlying soft tissues appear unremarkable. Lungs and pleura: No pleural effusions or pneumothorax. Lungs appear clear. Mediastinum: Mediastinal contours appear normal. Heart size is normal. IMPRESSION: No acute fracture. No osseous lesion. If symptoms and/or clinical suspicion for pathology persist, further assessment with repeat, or advanced imaging (e.g., CT, MRI, or bone scan) may be helpful for further assessment. Dictated by: Maru Diaz M.D. on 12/28/2022 at 12:28 Approved by: Maru Diaz M.D. on 12/28/2022 at 12:28
--- NOTE | 2022-12-28 12:45 | ED.FALL ---
HPI - Fall <Carlo Wallis PA-C - Last Filed: 12/28/22 17:57> General Chief Complaint: Fall Stated Complaint: fell/rt elbow injury/lac/on blood thinners Time Seen by Provider: 12/28/22 12:42 Source: patient Mode of arrival: Ambulatory History of Present Illness HPI Narrative: This is a 82-year-old female presents emergency department after tripping and falling over a curb while getting out of her car. She is complaining of right elbow pain as well as right-sided rib pain. She did not hit her head or lose consciousness. Patient states that she takes blood thinners but is not sure of the name. Denies any chest pain, shortness of breath, dizziness, abdominal pain, or any other musculoskeletal pain. Related Data Previous Rx's Medication Instructions Recorded aluminum-mag hydroxide-simethicone 30 ml PO Q6HR PRN Dyspepsia #500 mL 12/22/22 200 mg-200 mg-20 mg/5 mL oral susp (Mag-Al Plus) aspirin 81 mg capsule 81 mg PO DAILY #30 caps 12/22/22 atorvastatin 20 mg tablet 80 mg PO BEDTIME #120 tabs 12/22/22 clopidogrel 75 mg tablet 75 mg PO DAILY #20 tabs 12/22/22 hydralazine 25 mg tablet 25 mg PO ACHS #120 tabs 12/22/22 insulin glargine 100 unit/mL (3 20 unit (0.2 mL) SUBCUT BEDTIME 12/22/22 mL) subcutaneous pen (Lantus #15 mL Solostar U-100 Insulin) lisinopril 20 mg tablet 20 mg PO DAILY #30 tabs 12/22/22 metoprolol succinate 25 mg 25 mg PO BID #60 tabs 12/22/22 tablet,extended release 24 hr sennosides 8.6 mg tablet (senna) 17.2 mg PO BEDTIME #30 tabs 12/22/22 Allergies Allergy/AdvReac Type Severity Reaction Status Date / Time latex [LATEX] Allergy Intermediate rash Verified 12/20/22 14:50 Review of Systems <Carlo Wallis PA-C - Last Filed: 12/28/22 17:57> Review of Systems Narrative: GENERAL: Denies chills, fatigue, malaise, fever, sweats. HEENT: Denies sinus pain, ear pain, sore throat, difficulty swallowing, dizziness. RESPIRATORY: Denies dyspnea, cough, wheezing, hemoptysis, sputum. CARDIOVASCULAR: Denies chest pain, palpitations, orthopnea, edema, GASTROINTESTINAL: Denies nausea, vomiting, abdominal pain, diarrhea, constipation, melena. : Denies dysuria, frequency, incontinence, hematuria, urinary retention. MUSCULOSKELETAL: Reports right rib pain as well as right elbow pain, denies weakness, joint pain, or bony pain SKIN: Denies rash, skin lesions, or other NEUROLOGIC: Denies weakness, headache, numbness, change in speech, confusion, seizures, incoordination. PSYCHIATRIC: No concerning psychosocial issues. 12 point review of systems is negative except for those stated above Patient History <Carlo Wallis PA-C - Last Filed: 12/28/22 17:57> Medical History Diabetes History of Zaman's palsy Hyperlipidemia Hypertension Macular degeneration Surgical History History of Social History household members: spouse and family Smoking Status: Unknown if ever smoked alcohol intake: never Smoking Status: Unknown if ever smoked alcohol intake frequency: holidays/special occasions only Substance Use Type: does not use Exam <ENIO Norwood Last Filed: 12/28/22 17:57> Narrative Exam Narrative: GENERAL: Well-developed patient, in mild distress. HEAD: Atraumatic. Normocephalic. EYES: Pupils equal round and reactive. Extraocular motions intact. No scleral icterus. No injection or drainage. ENT: Nose without bleeding, purulent drainage. Throat without erythema, tonsillar hypertrophy or exudate. Airway patent. NECK: Trachea midline. Non tender CARDIOVASCULAR: Regular rate and rhythm without murmurs, gallops, or rubs. RESPIRATORY: Clear to auscultation. Breath sounds equal bilaterally. No wheezes, rales, or rhonchi. Mild tenderness to palpation to the lower right ribs. Very small area of ecchymosis. GASTROINTESTINAL: Abdomen soft, non-tender, nondistended. EXTREMITIES: Mild tenderness to palpation around the right elbow, no tenderness to the right forearm wrist or hand or shoulder. 2+ radial pulse. Neurovascularly intact throughout. BACK: Nontender without deformity or crepitance. No flank tenderness. NEURO: AOx3. GCS 15 SKIN: Skin tears to the right elbow. No deeper lacerations. No active bleeding. Initial Vital Signs Initial Vital Signs: Vital Signs Temperature 98.3 F 12/28/22 12:37 Pulse Rate 66 12/28/22 12:37 Respiratory Rate 18 12/28/22 12:37 Blood Pressure 204/89 H 12/28/22 12:37 Pulse Oximetry 98 12/28/22 12:37 Oxygen Delivery Method Room Air 12/28/22 12:37 <Jose Negrete DO - Last Filed: 12/29/22 07:16> Initial Vital Signs Initial Vital Signs: Vital Signs Temperature 98.3 F 12/28/22 12:37 Pulse Rate 66 12/28/22 12:37 Respiratory Rate 18 12/28/22 12:37 Blood Pressure 204/89 H 12/28/22 12:37 Pulse Oximetry 98 12/28/22 12:37 Oxygen Delivery Method Room Air 12/28/22 12:37 Course <Carlo Wallis PA-C - Last Filed: 12/28/22 17:57> Orders Ordered: Discontinued Medications Diphtheria/Tetanus/Acell Pertussis (Tet,Diph,Pertuss(Acell),Vac/Pf 0.5 Ml Syringe) 0.5 ml IM .ONCE ONE Stop: 12/28/22 12:43 Last Admin: 12/28/22 12:55 Dose: 0.5 ml Documented By: JUAN ALBERTO Vital Signs Vital signs: Vital Signs - 8 hr 12/28/22 12:37 12/28/22 12:37 12/28/22 12:38 Temperature 98.3 F Pulse Rate 66 63 Respiratory Rate 18 Blood Pressure 204/89 H 204/89 H Pulse Oximetry 98 98 Oxygen Delivery Method Room Air 12/28/22 12:38 12/28/22 13:00 12/28/22 13:01 Temperature Pulse Rate 64 62 Respiratory Rate Blood Pressure 178/76 H Pulse Oximetry 98 97 Oxygen Delivery Method 12/28/22 13:01 12/28/22 13:21 12/28/22 13:21 Temperature Pulse Rate 62 59 L Respiratory Rate Blood Pressure 186/85 H Pulse Oximetry 97 98 Oxygen Delivery Method <DO Madhav Carrillo Last Filed: 12/29/22 07:16> Orders Ordered: Discontinued Medications Diphtheria/Tetanus/Acell Pertussis (Tet,Diph,Pertuss(Acell),Vac/Pf 0.5 Ml Syringe) 0.5 ml IM .ONCE ONE Stop: 12/28/22 12:43 Last Admin: 12/28/22 12:55 Dose: 0.5 ml Documented By: JUAN ALBERTO Vital Signs Vital signs: Vital Signs - 8 hr 12/28/22 12:37 12/28/22 12:37 12/28/22 12:38 Temperature 98.3 F Pulse Rate 66 63 Respiratory Rate 18 Blood Pressure 204/89 H 204/89 H Pulse Oximetry 98 98 Oxygen Delivery Method Room Air 12/28/22 12:38 12/28/22 13:00 12/28/22 13:01 Temperature Pulse Rate 64 62 Respiratory Rate Blood Pressure 178/76 H Pulse Oximetry 98 97 Oxygen Delivery Method 12/28/22 13:01 12/28/22 13:21 12/28/22 13:21 Temperature Pulse Rate 62 59 L Respiratory Rate Blood Pressure 186/85 H Pulse Oximetry 97 98 Oxygen Delivery Method MDM - Fall <Carlo Wallis PA-C - Last Filed: 12/28/22 17:57> Imaging Data R rib XR : Radiologist's Impression: [place] [address] XRay Report Signed Patient: Brisa Green MR#: [id number] : 1940 Acct:[id number] Age/Sex: 82 / F Date of Service: 12/28/22 Loc: ED Accession Number: [id number] ?? Procedure: XR ribs RT min 3V w CXR1V Ordering Provider: Carlo Wallis P.A-C PROCEDURE:? XR RIBS RT MIN 3V W CXR 1V ? INDICATIONS:? R rib pain s/p fall ? TECHNIQUE:? 2 views of the right ribs were acquired, along with a single view chest.? ? COMPARISON:? None. ? FINDINGS:? ? Surgical changes and devices:? None.? ? Bones and chest wall:? No fractures or dislocations.? No suspicious bony lesions.? Overlying soft tissues appear unremarkable.? ? Lungs and pleura:? No pleural effusions or pneumothorax.? Lungs appear clear.? ? Mediastinum:? Mediastinal contours appear normal.? Heart size is normal.? ? IMPRESSION:? No acute fracture. No osseous lesion. If symptoms and/or clinical suspicion for pathology persist, further assessment with repeat, or advanced imaging (e.g., CT, MRI, or bone scan) may be helpful for further assessment. ? Dictated by: Maru Diaz M.D. on 12/28/2022 at 12:28 ? ? Approved by: Maru Diaz M.D. on 12/28/2022 at 12:28 ? Extremity x-ray #1: Radiologist's Impression: [address] [address] XRay Report Signed Patient: Brisa Green MR#: [id number] : 1940 Acct:[id number] Age/Sex: 82 / F Date of Service: 12/28/22 Loc: ED Accession Number: [id number] ?? Procedure: XR elbow RT min 3V Ordering Provider: Carlo Wallis P.A-C PROCEDURE:? XR ELBOW RT MIN 3V ? INDICATIONS:? R elbow pain s/p fall ? TECHNIQUE:? 3 views of the elbow were acquired.? ? COMPARISON:? None. ? FINDINGS:? ? Bones:? No fractures or dislocations.? No suspicious bony lesions.? ? Soft tissues:? No elbow joint effusion.? No suspicious soft tissue calcifications.? ? ? IMPRESSION:? No acute fracture. No osseous lesion. If symptoms and/or clinical suspicion for pathology persist, further assessment with repeat, or advanced imaging (e.g., CT, MRI, or bone scan) may be helpful for further assessment. ? ? Dictated by: Maru Diaz M.D. on 12/28/2022 at 12:29 ? ? Approved by: Maru Diaz M.D. on 12/28/2022 at 12:29 ? MDM Narrative Medical decision making narrative: MDM * differential diagnosis includes but not limited to right elbow fracture, laceration, right rib fracture, pneumothorax, intra-abdominal injury * Prior records reviewed: Patient was seen here last week and admitted for 2 days for TIA with hypertensive urgency and hyperglycemia.. History of diabetes, hypertension, hyperlipidemia, macular degeneration. History of 3 prior C-sections but no other surgeries. Patient states she takes aspirin. * My lab interpretation: None * My imgaing interpretation: Right rib and chest x-ray showed no evidence of rib injury or lung injury. Right elbow x-ray negative as well. * Clinical Decision Rules/Scores evaluated: None * Independent discussions with: None ED Course: This is a 82-year-old female presents to the emergency department due to a mechanical ground level fall. She would not hit her head or lose consciousness and no head CT necessary. Patient did report and show right rib pain as well as right elbow pain. X-ray of the right rib as well as chest were ordered which showed no fractures. Right elbow x-ray negative as well for fractures. Patient did have a superficial skin tear which is bandaged. Tetanus was updated. Patient was neurovascularly intact throughout. Recommended patient follow up with her primary care provider for blood pressure medication management. She would not take her daily dose of blood pressure medication today. She would not report any chest pain, headaches, or any other signs of end-organ damage. Shared Decision Making: Discussed plan with patient who is comfortable with the plan Social Considerations: Patient has a supportive [id number]. Disposition: Discharge to home Discharge Plan Departure Patient Disposition: Home Clinical Impression: Ground-level fall Activity Restrictions/Additional Instructions: Thank you for coming to the [facility] Emergency Department today. Your right elbow x-ray as well as right rib x-rays were negative for any fractures or bony abnormalities. We also took an x-ray of her lungs and there does not appear to be any kind of lung injury. Your physical exam was reassuring. Please take your at-home blood pressure medication when you get home and follow up with the primary care provider for continued management. Please monitor the wound to right elbow for any signs of spreading redness, purulent discharge, or any other signs of infection. I hope you feel better soon. Prescriptions: No Action atorvastatin 20 mg Tablet 80 mg PO BEDTIME Qty: 120 0RF hydralazine 25 mg Tablet 25 mg PO ACHS Qty: 120 0RF clopidogrel 75 mg Tablet 75 mg PO DAILY Qty: 20 0RF insulin glargine [Lantus Solostar U-100 Insulin] 100 unit/mL (3 mL) Insulin Pen 20 unit SUBCUT BEDTIME Qty: 15 0RF sennosides [senna] 8.6 mg Tablet 17.2 mg PO BEDTIME Qty: 30 0RF lisinopril 20 mg Tablet 20 mg PO DAILY Qty: 30 0RF metoprolol succinate 25 mg Tablet Extended Release 24 Hr 25 mg PO BID Qty: 60 0RF alum-mag hydroxide-simeth [Mag-Al Plus] 200-200-20 mg/5 mL Suspension 30 ml PO Q6HR PRN (Reason: Dyspepsia) Qty: 500 0RF aspirin 81 mg capsule 81 mg PO DAILY Qty: 30 0RF Rx Instructions: Patient to take daily for rest of life. Referrals: Radha Golden, ENIO [Primary Care Provider] - Stand Alone Forms: Patient Portal/API <Jose Negrete DO - Last Filed: 12/29/22 07:16> Cosign ED Attending Mannyature Attestation: I was immediately available in the department for consultation. Documentation has been reviewed. I agree with assessment and plan.
[2022-12-28] MEDS: TET,DIPH,PERTUSS(ACELL),VAC/PF 0.5 ML SYRINGE IM (12:55)
[2022-12-28 13:00] VITALS: PULSE 62; O2SAT 97
[2022-12-28 13:01] VITALS: BP 178/76; PULSE 62; O2SAT 97
[2022-12-28 13:21] VITALS: BP 186/85; PULSE 59; O2SAT 98
== END 2022-12-28 14:02 | disposition home or self-care (01) ==
PROVIDERS: Emergency Provider Physician Assistant Medical; PCP Student in an Organized Health Care Education/Training Program
DX: S49.91XA Unspecified injury of right shoulder and upper arm, initial encounter (principal); R07.81 Pleurodynia; W18.30XA Fall on same level, unspecified, initial encounter; Z23 Encounter for immunization
CPT/HCPCS: 71101; 73080; 90471; 99283; 99284; 90715

== ENCOUNTER → 2023-01-14 15:21 | Outpatient (CLI) | payer MEDICARE, SELFPAY ==
[2022-12-20 16:41] VITALS: BMI 32.3
--- NOTE | 2023-01-14 | DI.US.S_ITS ---
PROCEDURE: US THYROID INDICATIONS: NONTOXIC GOITER TECHNIQUE: Real-time scanning was performed of the thyroid gland, with image documentation. COMPARISON: None. FINDINGS: Right: Thyroid lobe measures 5.8 x 2.2 x 1.9 cm, and is homogeneous in echotexture. Left: Thyroid lobe measures 7.7 x 2 x 3.3 cm, and is homogenous in echotexture. Isthmus: 7.2 mm thick. Nodule number: 1 Location: Upper pole right thyroid lobe. Size: 0.9 x 0.6 x 0.4 cm. Composition: Predominantly solid Echogenicity: Hypoechoic Shape: Wider than tall Margins: Smooth Echogenic foci: Non Total points: 4 ACR TI-RADS category: Moderately suspicious. Nodule number: 2 Location: Mid pole left thyroid lobe Size: 1.7 x 1.4 x 1.2 cm Composition: Solid Echogenicity: Hypoechoic Shape: Wider than tall Margins: Lobulated Echogenic foci: Punctate Total points: 7 ACR TI-RADS category: Highly suspicious. Nodule number: 3 Location: Lower pole left thyroid lobe Size: 1.5 x 1.4 x 1.4 cm Composition: Solid Echogenicity: Hypoechoic Shape: Wider than tall Margins: Smooth Echogenic foci: Peripheral calcifications. Total points: 6 ACR TI-RADS category: Moderately suspicious. Nodule number: 4 Location: Left isthmus Size: 1.2 x 1.2 x 0.9 cm Composition: Solid Echogenicity: Isoechoic Shape: Wider than tall Margins: Smooth Echogenic foci: Peripheral calcifications Total points: 6 ACR TI-RADS category: Moderately suspicious. IMPRESSION: 1. Asymmetrically enlarged left thyroid lobe with 3 moderate to highly suspicious left thyroid lobe nodules as described above. Single moderately suspicious nodule is seen in right thyroid lobe as above. Consider fine-needle aspiration of the midpole left thyroid lobe and lower pole left thyroid lobe nodules (nodules 2 and 3) for further evaluation. ACR TI-RADS definitions and recommendations: TI-RADS 1 (benign): 0 points. FNA not needed. TI-RADS 2 (not suspicious): 2 points. FNA not needed. TI-RADS 3 (mildly suspicious): 3 points. * FNA if 2.5 cm or larger, follow up if 1.5 cm or larger (at 1, 3, and 5 years). TI-RADS 4 (moderately suspicious): 4-6 points. * FNA if 1.5 cm or larger, follow up if 1 cm or larger (at 1, 2, 3, and 5 years). TI-RADS 5 (highly suspicious): 7 points or more. * FNA if 1 cm or larger, follow up if 0.5 cm or larger (every year for 5 years). Dictated by: Raymundo Alvarez M.D. on 01/15/2023 at 8:59 Approved by: Raymundo Alvarez M.D. on 01/15/2023 at 9:03
--- NOTE | 2023-01-14 | DI.CT.S_ITS ---
PROCEDURE: CT CHEST WO CON INDICATIONS: Localized enlarged lymph nodes TECHNIQUE: Noncontrast 5 mm thick sections acquired from the pulmonary apices to the posterior costophrenic angles. 1 mm lung window, 5 mm thick coronal and sagittal and 7 mm axial MIP reformats were then acquired. For radiation dose reduction, the following was used: automated exposure control, adjustment of mA and/or kV according to patient size. COMPARISON: None. FINDINGS: Image quality: Excellent. Lungs and pleura: No acute air space opacities. There is a small low-density right pleural effusion. No pneumothorax. Central and peripheral airways are patent and normal in caliber. Mediastinum: Heart size is normal. No pericardial effusion. Multiple shotty mediastinal lymph nodes are present. The largest measures 1.1 cm in the subcarinal region. Thoracic aorta and central pulmonary arteries are normal in size. Esophagus is normal in caliber. No hiatal hernia. Bones and chest wall: No suspicious bony lesions. No vertebral body compression fractures. No axillary or supraclavicular adenopathy by size criteria. Thyroid gland is enlarged with a heterogeneous appearance and macro calcifications present. Abdomen: A low-density cystic lesion is partially visualized within the left hepatic lobe. This has scalloped margins and appears to contain some punctate calcifications. Visualized upper abdominal solid organs and bowel loops appear otherwise normal in the absence of contrast. IMPRESSION: 1. Multiple shotty mediastinal lymph nodes, most of which do not meet the pathologic size criteria for adenopathy. No cervical or axillary adenopathy. 2. Enlarged heterogeneous thyroid gland with calcifications. Thyroid ultrasound recommended to further characterize findings. 3. Trace right pleural effusion. No acute airspace opacities. No suspicious pulmonary nodules. Dictated by: Sharla Boone M.D. on 01/14/2023 at 16:03 Approved by: Sharla Boone M.D. on 01/14/2023 at 16:08
== END ==
PROVIDERS: PCP Student in an Organized Health Care Education/Training Program; Referring Provider Student in an Organized Health Care Education/Training Program; Visit Provider Student in an Organized Health Care Education/Training Program
DX: E04.9 Nontoxic goiter, unspecified (principal); R59.0 Localized enlarged lymph nodes
CPT/HCPCS: 71250; 76536

== ENCOUNTER 2023-07-07 11:42 | Emergency (ER) | payer MEDICARE, SELFPAY ==
[2022-12-20 16:41] VITALS: BMI 32.3
[2023-07-07 11:52] VITALS: BP 185/83; PULSE 82; RESP 18; TEMP 37.2; O2SAT 96; BMI 32.3
--- NOTE | 2023-07-07 12:00 | DI.RAD.S_ITS ---
PROCEDURE: XR HIP W PEL IF DONE RT 2V INDICATIONS: fall/lump TECHNIQUE: AP pelvis with lateral view of the right hip. COMPARISON: None. FINDINGS: Bones: No acute fractures or dislocations. Pelvic ring appears intact. No suspicious bony lesions. Mild degenerative changes in the hips bilaterally. Degenerative changes also noted at the pubic symphysis and lumbar spine. Soft tissues: The visualized bowel gas pattern is normal. No suspicious soft tissue calcifications. IMPRESSION: No acute osseous abnormality. If the symptoms persist, consider cross sectional imaging such as MRI or CT for further assessment. Approved by: Russel Nguyen M.D. on 07/07/2023 at 12:37
--- NOTE | 2023-07-07 12:38 | ED.FALL ---
HPI - Fall <Lois Bailey PA-C - Last Filed: 07/07/23 17:21> General Chief Complaint: Fall Stated Complaint: fall, laceration L arm Time Seen by Provider: 07/07/23 12:04 Source: patient and family Mode of arrival: Ambulatory History of Present Illness HPI Narrative: 83-year-old female with past medical history macular degeneration, CVA, diabetes, hyperlipidemia, hypertension presents to the ED status post a mechanical fall sustained just prior to arrival. Patient states that she was walking on a ramp from her car to the front door when she sustained a mechanical slip and fall on a piece of ice. Patient denies head strike or LOC. Patient struck her right hip, sustained a skin tear of the left forearm. Patient was unable to stand up after the fall, called her son who lives 3-4 miles away from her, he brought her to the ED. patient endorses minimal pain in the hip and the arm. Patient is on clopidogrel and baby aspirin. Patient is able to bear weight and walk now. Related Data Previous Rx's Medication Instructions Recorded aluminum-mag hydroxide-simethicone 30 ml PO Q6HR PRN Dyspepsia #500 mL 12/22/22 200 mg-200 mg-20 mg/5 mL oral susp (Mag-Al Plus) aspirin 81 mg capsule 81 mg PO DAILY #30 caps 12/22/22 atorvastatin 20 mg tablet 80 mg (4 x 20 mg) PO BEDTIME #120 12/22/22 tabs clopidogrel 75 mg tablet 75 mg PO DAILY #20 tabs 12/22/22 hydralazine 25 mg tablet 25 mg PO ACHS #120 tabs 12/22/22 insulin glargine 100 unit/mL (3 20 unit (0.2 mL) SUBCUT BEDTIME 12/22/22 mL) subcutaneous pen (Lantus #15 mL Solostar U-100 Insulin) lisinopril 20 mg tablet 20 mg PO DAILY #30 tabs 12/22/22 metoprolol succinate 25 mg 25 mg PO BID #60 tabs 12/22/22 tablet,extended release 24 hr sennosides 8.6 mg tablet (senna) 17.2 mg (2 x 8.6 mg) PO BEDTIME 12/22/22 #30 tabs Allergies Allergy/AdvReac Type Severity Reaction Status Date / Time latex [LATEX] Allergy Intermediate rash Verified 12/20/22 14:50 Review of Systems <Lois Bailey PA-C - Last Filed: 07/07/23 17:21> Constitutional Constitutional: Denies chills, Denies fatigue, Denies fever(s), Denies frequent falls, Denies lethargy and Denies weakness Eyes Eyes: Denies change in vision, Denies eye discharge, Denies irritation and Denies loss of vision ENT Ears, Nose, Mouth, and Throat: Denies change in voice, Denies dizziness, Denies neck pain, Denies sore throat and Denies throat swelling Cardiovascular Cardiovascular: Denies chest pain, Denies irregular heart rhythm, Denies lightheadedness, Denies palpitations, Denies dyspnea, Denies dyspnea on exertion and Denies orthopnea Respiratory Respiratory: Denies cough, Denies dyspnea, Denies dyspnea on exertion and Denies wheezing Gastrointestinal Gastrointestinal: Denies abdominal pain, Denies change in bowel habits, Denies diarrhea, Denies nausea and Denies vomiting Musculoskeletal Musculoskeletal: Denies neck pain and Denies numbness Comments: Right hip pain Integumentary/Breasts Skin/Breast: Denies pruritus, Denies erythema, Denies rash and Denies wounds Comments: Skin tear to left forearm Neurologic Neurologic: Denies behavioral changes, Denies confusion, Denies dizziness, Denies frequent falls, Denies loss of vision, Denies numbness and Denies weakness Psychiatric Psychiatric: Denies anxiety, Denies behavioral changes, Denies confusion, Denies depression, Denies homicidal ideation and Denies suicidal ideation Endocrine Endocrine: Denies fatigue, Denies flushing and Denies palpitations Hematologic/Lymphatic Hematologic/Lymphatic: Denies easy bruising Allergic/Immunologic Allergic/Immunologic: Denies urticaria, Denies throat swelling and Denies wheezing Patient History <Lois Bailey PA-C - Last Filed: 07/07/23 17:21> Medical History Macular degeneration History of Zaman's palsy Hypertension Hyperlipidemia Diabetes Surgical History History of Social History household members: spouse and family Smoking Status: Unknown if ever smoked alcohol intake: never Smoking Status: Unknown if ever smoked alcohol intake frequency: holidays/special occasions only Substance Use Type: does not use Exam <Lois Bailey PA-C - Last Filed: 07/07/23 17:21> Narrative Exam Narrative: Const General:?cooperative, healthy appearing and comfortable [facility] Head:?normal to inspection Ears:?hearing grossly normal bilaterally Nose:?external nose normal Face and sinus:?normal facial exam and sinuses nontender Mouth:?oral mucosae normal Throat:?posterior oropharynx normal Eyes General:?appearance normal, both eyes and all related structures Neck Neck:?normal visual inspection and no lymphadenopathy noted Resp Effort & Inspection:?normal respiratory effort Auscultation:?clear to auscultation bilaterally Cardio Rate:?regular rate Rhythm:?regular rhythm Integumentary There is a skin tear to the left forearm. Bleeding is controlled with pressure. Strength and sensation is intact. Full range of motion. Patient is neurovascularly intact. Musculoskeletal Minimal tenderness to palpation of the right hip. There is a significant hematoma, the size of a golf ball just below the right greater trochanter. There is a small spot of bruising. Patient is able to bear weight and walk. Neuro General:?patient alert, patient awake and patient oriented x3 Initial Vital Signs Initial Vital Signs: Vital Signs Temperature 99 F 07/07/23 11:52 Pulse Rate 82 07/07/23 11:52 Respiratory Rate 18 07/07/23 11:52 Blood Pressure 185/83 H 07/07/23 11:52 Pulse Oximetry 96 07/07/23 11:52 Oxygen Delivery Method Room Air 07/07/23 11:52 <Lilia Guan MD - Last Filed: 07/08/23 07:08> Initial Vital Signs Initial Vital Signs: Vital Signs Temperature 99 F 07/07/23 11:52 Pulse Rate 82 07/07/23 11:52 Respiratory Rate 18 07/07/23 11:52 Blood Pressure 185/83 H 07/07/23 11:52 Pulse Oximetry 96 07/07/23 11:52 Oxygen Delivery Method Room Air 07/07/23 11:52 Course <Lois Bailey PA-C - Last Filed: 07/07/23 17:21> Orders Ordered: ED Orders 07/07/23 12:00 XR hip w pel if done RT 2V Stat 07/07/23 12:53 CT LE RT w con Stat 07/07/23 13:10 CBC Auto Diff [Complete Blood Count AUTO DIFF] Stat CMP [Comprehensive Metabolic Panel] Stat PT [Prothrombin Time INR] Stat PTT Partial Thromboplastin Milad Stat Vital Signs Vital signs: Vital Signs - 8 hr 07/07/23 11:52 07/07/23 13:10 07/07/23 14:39 Temperature 99 F Pulse Rate 82 84 80 Respiratory Rate 18 20 Blood Pressure 185/83 H 148/70 H 180/71 H Pulse Oximetry 96 96 95 Oxygen Delivery Method Room Air Room Air Room Air <Lilia Guan MD - Last Filed: 07/08/23 07:08> Orders Ordered: ED Orders 07/07/23 12:00 XR hip w pel if done RT 2V Stat 07/07/23 12:53 CT LE RT w con Stat 07/07/23 13:10 CBC Auto Diff [Complete Blood Count AUTO DIFF] Stat CMP [Comprehensive Metabolic Panel] Stat PT [Prothrombin Time INR] Stat PTT Partial Thromboplastin Milad Stat Vital Signs Vital signs: Vital Signs - 8 hr 07/07/23 11:52 07/07/23 13:10 07/07/23 14:39 Temperature 99 F Pulse Rate 82 84 80 Respiratory Rate 18 20 Blood Pressure 185/83 H 148/70 H 180/71 H Pulse Oximetry 96 96 95 Oxygen Delivery Method Room Air Room Air Room Air MDM - Fall <Lois Bailey PA-C - Last Filed: 07/07/23 17:21> Lab Data 07/07/23 13:10 07/07/23 13:10 Labs: Lab Results 07/07/23 Range/Units 13:10 WBC 4.0 L (4.5-11.0) X10^3/uL RBC 4.07 (4.0-5.2) X10^6/uL Hgb 10.4 L (12.0-16.0) g/dL Hct 31.8 L (36-46) % MCV 78.3 L (80-100) fL MCH 25.7 L (26-34) PG MCHC 32.8 (30-36) % RDW 16.0 H (11.6-14.8) % Plt Count 110 L (150-400) X10^3/uL Neut % (Auto) 83.5 H (50-75) % Lymph % (Auto) 6.2 L (25-40) % [place] % (Auto) 9.8 (3-14) % Eos % (Auto) 0.1 L (2-4) % Baso % (Auto) 0.4 (0-2) % Neut # (Auto) 3300 (6037-5588) /uL Lymph # (Auto) 200 L (0382-8383) /uL [place] # (Auto) 400 (0-900) /uL Eos # (Auto) 0 (0-450) /uL Baso # (Auto) 0 (0-100) /uL PT 13.8 H (9.4-12.5) SECONDS INR 1.2 (0.9-1.3) APTT 26 (25.1-36.5) SECONDS Sodium 131 L (137-145) mmol/L Potassium 3.7 (3.4-5.1) mmol/L Chloride 97 L (98-107) mmol/L Carbon Dioxide 25 (22-32) mmol/L BUN 12 (7-17) mg/dL Creatinine 0.69 (0.52-1.04) mg/dL Estimated GFR > 60 (>60) mL/min BUN/Creatinine Ratio 17.4 (6-22) Glucose 271 H (80-110) mg/dL Calcium 9.2 (8.4-10.2) mg/dL Total Bilirubin 0.8 (0.2-1.3) mg/dL AST 30 (14-36) IU/L ALT 17 (<35) IU/L Alkaline Phosphatase 82 (38-126) U/L Total Protein 7.1 (6.3-8.2) g/dL Albumin 4.0 (3.5-5.0) g/dL Globulin 3.1 (1.7-4.1) g/dL Albumin/Globulin Ratio 1.3 (1.0-2.8) MDM Narrative Medical decision making narrative: 83-year-old female with past medical history macular degeneration, CVA, diabetes, hyperlipidemia, hypertension presents to the ED status post a mechanical fall sustained just prior to arrival. Concern for fracture/dislocation versus musculoskeletal sprain/strain versus skin tear versus hematoma versus other. Obtained x-ray of the hip which shows no acute osseous abnormality. Given a significant hematoma noted to the right hip, obtained CT. On CT there is a soft tissue hematoma in the subcutaneous tissue posterolateral to the right greater trochanter. There is a linear focus of contrast enhancement which is suspicious for active extravasation. There is surrounding subcutaneous edema. No deep intramuscular hematoma or acute osseous fracture identified. Repeat physical exam after the CT does show that the hematoma doubled in size. Compartments are still soft. Patient is still endorsing minimal discomfort. Dr. Perez from general surgery was consulted. She recommends ice, an abdominal binder to compress, have patient lay on the right side for further compression. Will re-evaluate. Re-evaluated the patient after an hour, the hematoma appears stable. Will observe patient for a bit longer prior to discharge. Patient was observed for 2 hours, the hematoma continued to be stable and did not enlarge. Patient's forearm injury was dressed. Recommend monitoring the hematoma for the next day or 2 to ensure it does not significantly enlarge. Recommend binding with the abdominal binder, laying on the right side, applying ice. Discussed this with patient and patient's son. They verbalized understanding. ED return precautions were discussed with patient and patient's son. They verbalized understanding. Medical records reviewed: Yes <Lilia Guan MD - Last Filed: 07/08/23 07:08> Lab Data Labs: Lab Results 07/07/23 Range/Units 13:10 WBC 4.0 L (4.5-11.0) X10^3/uL RBC 4.07 (4.0-5.2) X10^6/uL Hgb 10.4 L (12.0-16.0) g/dL Hct 31.8 L (36-46) % MCV 78.3 L (80-100) fL MCH 25.7 L (26-34) PG MCHC 32.8 (30-36) % RDW 16.0 H (11.6-14.8) % Plt Count 110 L (150-400) X10^3/uL Neut % (Auto) 83.5 H (50-75) % Lymph % (Auto) 6.2 L (25-40) % [place] % (Auto) 9.8 (3-14) % Eos % (Auto) 0.1 L (2-4) % Baso % (Auto) 0.4 (0-2) % Neut # (Auto) 3300 (1378-7052) /uL Lymph # (Auto) 200 L (0870-2148) /uL [place] # (Auto) 400 (0-900) /uL Eos # (Auto) 0 (0-450) /uL Baso # (Auto) 0 (0-100) /uL PT 13.8 H (9.4-12.5) SECONDS INR 1.2 (0.9-1.3) APTT 26 (25.1-36.5) SECONDS Sodium 131 L (137-145) mmol/L Potassium 3.7 (3.4-5.1) mmol/L Chloride 97 L (98-107) mmol/L Carbon Dioxide 25 (22-32) mmol/L BUN 12 (7-17) mg/dL Creatinine 0.69 (0.52-1.04) mg/dL Estimated GFR > 60 (>60) mL/min BUN/Creatinine Ratio 17.4 (6-22) Glucose 271 H (80-110) mg/dL Calcium 9.2 (8.4-10.2) mg/dL Total Bilirubin 0.8 (0.2-1.3) mg/dL AST 30 (14-36) IU/L ALT 17 (<35) IU/L Alkaline Phosphatase 82 (38-126) U/L Total Protein 7.1 (6.3-8.2) g/dL Albumin 4.0 (3.5-5.0) g/dL Globulin 3.1 (1.7-4.1) g/dL Albumin/Globulin Ratio 1.3 (1.0-2.8) Discharge Plan Departure Patient Disposition: Home Clinical Impression: Hematoma, Skin tear Hip pain Qualifiers: Laterality: right Qualified Code(s): M25.551 - Pain in right hip Instructions: DI for Hematoma (Bruise), How to Prevent Falls Activity Restrictions/Additional Instructions: You were evaluated in the ED for injuries sustained from a fall. Your x-ray did not show any fractures or dislocations. The CT did show a hematoma which is a blood clot that formed on your right hip from the injury. You were observed in the ED, the hematoma stopped expanding with the compression band and putting pressure on it by laying on the right side. You may continue to wear the compression band, tried to stay on the right side as much as possible, apply ice. Please monitor it and ensure that it is not enlarging significantly. Please follow-up with your PCP as soon as possible. Return to the ED if the hematoma seem significantly larger and continues to get larger. The injury on the left forearm has been dressed with a nonstick dressing. You may change the dressing once daily. Do not keep any wet dressings on for any length of time. Please watch for signs of infection including worsening redness, pain, warmth, swelling, discharge. Return to the ED if you note any signs of infection. Prescriptions: No Action atorvastatin 20 mg Tablet 80 mg PO BEDTIME Qty: 120 0RF hydralazine 25 mg Tablet 25 mg PO ACHS Qty: 120 0RF clopidogrel 75 mg Tablet 75 mg PO DAILY Qty: 20 0RF insulin glargine [Lantus Solostar U-100 Insulin] 100 unit/mL (3 mL) Insulin Pen 20 unit SUBCUT BEDTIME Qty: 15 0RF sennosides [senna] 8.6 mg Tablet 17.2 mg PO BEDTIME Qty: 30 0RF lisinopril 20 mg Tablet 20 mg PO DAILY Qty: 30 0RF metoprolol succinate 25 mg Tablet Extended Release 24 Hr 25 mg PO BID Qty: 60 0RF alum-mag hydroxide-simeth [Mag-Al Plus] 200-200-20 mg/5 mL Suspension 30 ml PO Q6HR PRN (Reason: Dyspepsia) Qty: 500 0RF aspirin 81 mg capsule 81 mg PO DAILY Qty: 30 0RF Rx Instructions: Patient to take daily for rest of life. Referrals: Radha Golden PA-C [Primary Care Provider] - Stand Alone Forms: Patient Portal/API ED Sign-out <Lilia Guan MD - Last Filed: 07/08/23 07:08> Cosign ED Attending Cosmartitaature Attestation: I did not see this patient. I was available all times for consultation.
--- NOTE | 2023-07-07 12:53 | DI.CT.S_ITS ---
PROCEDURE: CT LE RT W CON INDICATIONS: Trauma; ?hematoma TECHNIQUE: After the administration of intravenous contrast, 3 mm axial sections acquired of the pelvis and right hip, with coronal and sagittal reformats. COMPARISON: [facility], CR, XR HIP W PEL IF DONE RT 2V, 07/07/2023, 12:08. FINDINGS: Image quality: Excellent. Bones: No acute osseous fracture or dislocation. Degenerative changes are seen in the lumbar spine, sacroiliac joints and pubic symphysis. Mild degenerative changes are seen in the hips bilaterally. Soft tissues: In the subcutaneous tissues lateral to the right, there is a hyperdense fluid collection measuring approximately 4.6 x 2.9 x 4.4 cm, consistent with hematoma. A E linear focus of contrast enhancement is seen that is suspicious for active extravasation. There is surrounding subcutaneous edema. Tibiotalar tissues are otherwise unremarkable. No intramuscular hematoma is seen. Multiple diverticula are seen in the colon without acute inflammatory changes. Included small bowel loops are unremarkable. IMPRESSION: 1. Soft tissue hematoma is seen in the subcutaneous tissue posterolateral to the right greater trochanter. Linear focus of contrast enhancement is suspicious for active extravasation. Surrounding subcutaneous edema. 2. No acute osseous fracture. No deep intramuscular hematoma. Approved by: Russel Nguyen M.D. on 07/07/2023 at 14:32
[2023-07-07 13:10] VITALS: BP 148/70; PULSE 84; O2SAT 96
[2023-07-07 13:33] LABS: Add Manual Diff / Slide Review NO; Basophils Absolute Auto 0 /uL (0-100); Basophils Percent Auto 0.4 % (0-2); Eosinophils Absolute Auto 0 /uL (0-450); Eosinophils Percent Auto 0.1 % (2-4); Hematocrit 31.8 % (36-46); Hemoglobin 10.4 g/dL (12.0-16.0); Lymphocytes Absolute Auto 200 /uL (1100-4500); Lymphocytes Percent Auto 6.2 % (25-40); Mean Corpuscular HGB Conc 32.8 % (30-36); Mean Corpuscular Hemoglobin 25.7 PG (26-34); Mean Corpuscular Volume 78.3 fL (80-100); Monocytes Absolute Auto 400 /uL (0-900); Monocytes Percent Auto 9.8 % (3-14); Neutrophils Absolute Auto 3300 /uL (1500-7000); Neutrophils Percent Auto 83.5 % (50-75); Platelet Count 110 X10^3/uL (150-400); Red Blood Cell Count 4.07 X10^6/uL (4.0-5.2)
[2023-07-07 13:50] LABS: Alanine Aminotransferase 17 IU/L (<35); Albumin Globulin Ratio 1.3 (1.0-2.8); Alkaline Phosphatase 82 U/L (38-126); Aspartate Aminotransferase 30 IU/L (14-36); BUN Creatinine Ratio 17.4 (6-22); Bilirubin Total 0.8 mg/dL (0.2-1.3); Blood Urea Nitrogen 12 mg/dL (7-17); Calcium 9.2 mg/dL (8.4-10.2); Carbon Dioxide 25 mmol/L (22-32); Chloride 97 mmol/L (98-107); Estimated Glomerular Filt Rate > 60 mL/min (>60); Globulin 3.1 g/dL (1.7-4.1); Glucose 271 mg/dL (80-110); HEMOLYSIS < 15 (0-50); Potassium 3.7 mmol/L (3.4-5.1); Sodium 131 mmol/L (137-145); Total Protein 7.1 g/dL (6.3-8.2)
[2023-07-07 13:58] LABS: INR 1.2 (0.9-1.3); Prothrombin Time 13.8 SECONDS (9.4-12.5)
[2023-07-07 14:01] LABS: PTT Partial Thromboplastin Tim 26 SECONDS (25.1-36.5)
[2023-07-07 14:39] VITALS: BP 180/71; PULSE 80; RESP 20; O2SAT 95
[2023-07-07 17:31] VITALS: BP 180/79; PULSE 72; RESP 18; O2SAT 95
== END 2023-07-07 17:32 | disposition home or self-care (01) ==
PROVIDERS: Emergency Provider Student in an Organized Health Care Education/Training Program; PCP Student in an Organized Health Care Education/Training Program
DX: S51.812A Laceration without foreign body of left forearm, initial encounter (principal); S70.01XA Contusion of right hip, initial encounter; E11.9 Type 2 diabetes mellitus without complications; I10 Essential (primary) hypertension; E78.5 Hyperlipidemia, unspecified; M25.551 Pain in right hip; W00.0XXA Fall on same level due to ice and snow, initial encounter; Y93.89 Activity, other specified; Y92.018 Other place in single-family (private) house as the place of occurrence of the external cause
CPT/HCPCS: 36415; 73502; 73701; 80053; 85025; 85610; 85730; 99284; Q9967